=== PATIENT | female | born 1940 | race Asian ===

== ENCOUNTER 2016-07-09 09:48 | Outpatient (CLI) | payer MEDICARE, OTHER | END 2016-07-09 23:59 | DX: R07.2 Precordial pain (principal) ==

== ENCOUNTER 2016-12-11 10:02 | Outpatient (CLI) | payer MEDICARE, OTHER ==
[2016-12-11 13:03] LABS: BASOPHILS # (AUTO) 0.1 10^3/uL (0.0-0.1); BASOPHILS % (AUTO) 1.2 %; EOSINOPHILS # (AUTO) 0.2 10^3/uL (0.0-0.7); EOSINOPHILS % (AUTO) 4.2 %; HCT - HEMATOCRIT 42.5 % (37.0-47.0); HGB - HEMOGLOBIN 14.2 g/dL (12.0-16.0); LYMPHOCYTES % (AUTO) 43.3 %; MEAN CORPUSCULAR HEMOGLOBIN 30.2 pg (27.0-31.0); MEAN CORPUSCULAR HGB CONC 33.4 g/dL (32.0-36.0); MEAN CORPUSCULAR VOLUME 90.4 fL (81.0-99.0); MEAN PLATELET VOLUME 8.6 fL (7.9-10.8); MONOCYTES # (AUTO) 0.4 10^3/uL (0.0-1.0); NEUTROPHILS % (AUTO) 43.3 %; NUCLEATED RED BLOOD CELLS AUTO 0.1 /100WBC; RED CELL DISTRIBUTION WIDTH 13.4 % (12.0-15.0); UNCORRECTED WHITE BLOOD COUNT 4.6 x10^3/uL; WHITE BLOOD COUNT 4.6 x10^3/uL (4.8-10.8)
[2016-12-11 13:09] LABS: ALBUMIN/GLOBULIN RATIO 1.7 (1.0-2.2); BILIRUBIN,TOTAL 0.9 mg/dL (0.2-1.0); CALCIUM 9.3 mg/dL (8.5-10.3); CREATININE 0.5 mg/dL (0.4-1.0); POTASSIUM 3.5 mmol/L (3.5-5.0)
== END 2016-12-11 10:03 ==
LOC: LAB.R 10:02
PROVIDERS: ATTEND Nurse Practitioner Primary Care
DX: E55.9 Vitamin D deficiency, unspecified (principal); Z79.899 Other long term (current) drug therapy; I35.0 Nonrheumatic aortic (valve) stenosis; E78.5 Hyperlipidemia, unspecified
CPT/HCPCS: 80053; 82306; 84443; 85025

== ENCOUNTER 2017-01-20 12:51 | Outpatient (CLI) | payer MEDICARE, OTHER ==
--- NOTE | 2017-01-21 16:17 | DEXA Report ---
DEXA SCAN: 01/20/2017 CLINICAL INDICATION: Postmenopausal. TECHNIQUE: Dual energy x-ray absorptiometry (DXA) was performed on a [employer] system. Regions measured are the AP spine, femoral neck, and, if needed, forearm. COMPARISON: None. In accordance with the International Society for Clinical Densitometry (ISCD) guidelines, data from previous exams may be reanalyzed using current recommendations and techniques. This is done to allow a more accurate basis for comparison with the current study. FINDINGS The data for the lumbar spine is as follows: REGION BMD (g/cm/cm) T-SCORE Z-SCORE L1 0.735 -3.3 -1.3 L2 0.955 -2.0 0.0 L3 0.891 -2.6 -0.6 L4 0.890 -2.6 -0.6 TOTAL 0.869 -2.6 -0.6 NOTE: All evaluable vertebrae are used for classification. The data for the hip is as follows: REGION BMD (g/cm/cm) T-SCORE Z-SCORE Neck 0.664 -2.7 -0.5 TOTAL 0.701 -2.4 -0.4 NOTE: The femoral neck or total proximal femur, whichever is lowest, is used for classification. IMPRESSION: THE WHO CLASSIFICATION BASED ON THE INTERNATIONAL REFERENCE STANDARD IS OSTEOPOROSIS. THE FRACTURE RISK IS HIGH. RECOMMENDATION: Patients with diagnosis of osteoporosis or osteopenia should have regular bone mineral density assessment. For those eligible for Medicare, routine testing is allowed once every 2 years. Testing frequency can be increased for patients who have rapidly progressing disease or for those who are receiving medical therapy to restore bone mass. COMMENT: World Health Organization (WHO) definitions for osteoporosis and osteopenia: NORMAL BMD: T-score at -1.0 or higher, fracture risk is low. OSTEOPENIA BMD: T-score between -1.0 and -2.5, fracture risk is increased. OSTEOPOROSIS BMD: T-score at -2.5 or lower, fracture risk high. National Osteoporosis Foundation recommends: 1. Obtain adequate dietary calcium (at least 1200 mg per day) and vitamin D (400 -800 international units per day). 2. Participate, as appropriate, in regular weightbearing and muscle- strengthening exercise. 3. Avoid tobacco use and reduce alcohol and caffeine intake. 4. For more detailed information see the website at www.NOF.org. MTDD
== END 2017-01-20 12:52 | disposition home or self-care (01) ==
LOC: DI 12:51
PROVIDERS: ATTEND Nurse Practitioner Primary Care
DX: M81.0 Age-related osteoporosis without current pathological fracture (principal)
CPT/HCPCS: 77080

== ENCOUNTER 2017-04-20 11:09 | Outpatient (CLI) | payer MEDICARE, OTHER ==
[2017-04-20 16:48] LABS: ALBUMIN 4.4 g/dL (3.2-5.5); ALBUMIN/GLOBULIN RATIO 1.2 (1.0-2.2); BASOPHILS % (AUTO) 0.9 %; BILIRUBIN,TOTAL 0.3 mg/dL (0.2-1.0); CALCIUM 9.4 mg/dL (8.5-10.3); CREATININE 0.7 mg/dL (0.4-1.0); EOSINOPHILS # (AUTO) 0.2 10^3/uL (0.0-0.7); EOSINOPHILS % (AUTO) 3.4 %; HGB - HEMOGLOBIN 14.9 g/dL (12.0-16.0); LYMPHOCYTES # (AUTO) 2.4 10^3/uL (1.5-3.5); LYMPHOCYTES % (AUTO) 46.9 %; MEAN CORPUSCULAR HEMOGLOBIN 29.6 pg (27.0-31.0); MEAN CORPUSCULAR HGB CONC 32.5 g/dL (32.0-36.0); MEAN CORPUSCULAR VOLUME 91.2 fL (81.0-99.0); MEAN PLATELET VOLUME 8.7 fL (7.9-10.8); MONOCYTES # (AUTO) 0.3 10^3/uL (0.0-1.0); MONOCYTES % (AUTO) 6.5 %; NEUTROPHILS # (AUTO) 2.2 10^3/uL (1.5-6.6); NEUTROPHILS % (AUTO) 42.3 %; PLT - PLATELET COUNT 174 10^3/uL (130-450); RED BLOOD COUNT 5.04 10^6/uL (4.20-5.40); RED CELL DISTRIBUTION WIDTH 13.7 % (12.0-15.0); WHITE BLOOD COUNT 5.2 x10^3/uL (4.8-10.8)
== END 2017-04-20 11:10 | disposition home or self-care (01) ==
LOC: LAB.R 11:09
PROVIDERS: ATTEND Internal Medicine
DX: R10.13 Epigastric pain (principal)
CPT/HCPCS: 80053; 83690; 85025

== ENCOUNTER 2017-05-19 08:00 | Outpatient (CLI) | payer MEDICARE, OTHER | END 2017-05-19 08:01 | LOC: LAB.R 08:00 | PROVIDERS: ATTEND Nurse Practitioner Primary Care | DX: M81.0 Age-related osteoporosis without current pathological fracture (principal); E55.9 Vitamin D deficiency, unspecified | CPT/HCPCS: 82306 ==

== ENCOUNTER 2017-05-22 07:05 | Outpatient (CLI) | payer MEDICARE, OTHER ==
--- NOTE | 2017-05-22 12:21 | CT Report ---
CT OF SINUSES WITHOUT CONTRAST: 05/22/2017 CLINICAL INDICATION: Facial pain. TECHNIQUE: Axial CT images of the paranasal sinuses were obtained without contrast. COMPARISON: 04/22/2010. FINDINGS: Postoperative changes are again seen in the medial felipe of the maxillary sinuses and in the ethmoid air cells. Mild mucosal thickening is present in the sphenoid sinus, maxillary sinuses, and frontal sinuses. No air fluid levels are present. No osseous destruction is seen. The visualized orbital contents are unremarkable. IMPRESSION: MILD CHRONIC SINUS DISEASE, WITH PREVIOUS POSTSURGICAL CHANGES. In accordance with CT protocol optimization, one or more of the following dose reduction techniques were utilized for this exam: automated exposure control, adjustment of mA and/or KV based on patient size, or use of iterative reconstructive technique. TD: 05/22/2017 12:20
== END 2017-05-22 07:06 | disposition home or self-care (01) ==
LOC: DI 07:05
PROVIDERS: ATTEND Internal Medicine
DX: J32.9 Chronic sinusitis, unspecified (principal)
CPT/HCPCS: 70486

== ENCOUNTER 2017-07-01 08:09 | Outpatient (CLI) | payer MEDICARE, OTHER | END 2017-07-01 08:10 | disposition home or self-care (01) | LOC: DI 08:09 | PROVIDERS: ATTEND Physician Assistant Medical | DX: R07.89 Other chest pain (principal) | CPT/HCPCS: 93306 ==

== ENCOUNTER 2019-02-26 07:05 | Outpatient (CLI) | payer MEDICARE, OTHER ==
[2019-02-26 08:36] LABS: ALBUMIN/GLOBULIN RATIO 1.3 (1.0-2.2); ALKALINE PHOSPHATASE 54 IU/L (42-121); ALT ALANINE AMINOTRANSFERASE 16 IU/L (10-60); AST ASPARTATE AMINOTRANSFERASE 20 IU/L (10-42); BILIRUBIN,TOTAL 1.2 mg/dL (0.2-1.0); BUN - BLOOD UREA NITROGEN 17 mg/dL (6-20); CALCIUM 9.1 mg/dL (8.5-10.3); CARBON DIOXIDE - CO2 31 mmol/L (21-32); CHLORIDE 102 mmol/L (101-111); CHOL/HDL RATIO 3.6 (<4.4); CHOLESTEROL 268 mg/dL; CREATININE 0.6 mg/dL (0.4-1.0); GFR - MDRD 97 (>89); GLUCOSE 103 mg/dL (70-100); HDL CHOLESTEROL 75 mg/dL; LDL CHOLESTEROL,CALCULATED 166 mg/dL; LDL/HDL RATIO 2.2 (<4.4); SODIUM 140 mmol/L (135-145); VLDL CHOLESTEROL 27 mg/dL
[2019-02-26 09:07] LABS: BASOPHILS # (AUTO) 0.1 10^3/uL (0.0-0.1); BASOPHILS % (AUTO) 1.1 %; EOSINOPHILS # (AUTO) 0.2 10^3/uL (0.0-0.7); EOSINOPHILS % (AUTO) 4.7 %; HGB - HEMOGLOBIN 14.2 g/dL (12.0-16.0); LYMPHOCYTES # (AUTO) 1.7 10^3/uL (1.5-3.5); LYMPHOCYTES % (AUTO) 37.9 %; MEAN CORPUSCULAR HEMOGLOBIN 29.3 pg (27.0-31.0); MEAN CORPUSCULAR HGB CONC 31.3 g/dL (32.0-36.0); MEAN CORPUSCULAR VOLUME 93.6 fL (81.0-99.0); MEAN PLATELET VOLUME 10.1 fL (7.9-10.8); MONOCYTES # (AUTO) 0.5 10^3/uL (0.0-1.0); MONOCYTES % (AUTO) 10.3 %; NEUTROPHILS # (AUTO) 2.1 10^3/uL (1.5-6.6); NEUTROPHILS % (AUTO) 45.8 %; PLT - PLATELET COUNT 173 10^3/uL (130-450); RED BLOOD COUNT 4.84 10^6/uL (4.20-5.40); RED CELL DISTRIBUTION WIDTH 13.3 % (12.0-15.0); WHITE BLOOD COUNT 4.5 x10^3/uL (4.8-10.8)
== END 2019-02-26 07:06 | disposition home or self-care (01) ==
LOC: LAB 07:05
PROVIDERS: ATTEND Nurse Practitioner
DX: Z00.00 Encounter for general adult medical examination without abnormal findings (principal); M81.0 Age-related osteoporosis without current pathological fracture; I35.0 Nonrheumatic aortic (valve) stenosis; E55.9 Vitamin D deficiency, unspecified; E78.5 Hyperlipidemia, unspecified
CPT/HCPCS: 36415; 80053; 80061; 82306; 83721; 84443; 85025

== ENCOUNTER 2019-03-08 09:17 | Outpatient (CLI) | payer MEDICARE, OTHER ==
--- NOTE | 2019-03-08 11:00 | Ultrasound Report ---
Reason: AORTIC STENOSIS Procedure Date: 03/08/2019 Accession Number: [id number] / [id number] Procedure: US - Carotid Doppler Complete CPT Code: Final Report FULL RESULT: EXAM: BILATERAL CAROTID AND VERTEBRAL ARTERY DUPLEX DOPPLER ULTRASOUND: EXAM DATE: 03/08/2019 10:26 AM CLINICAL HISTORY: Aortic stenosis. COMPARISON: None. TECHNIQUE: Grayscale imaging, color Doppler, and duplex spectral Doppler were used to evaluate the carotid and vertebral arteries bilaterally. Static images were obtained. FINDINGS: There is mild bilateral intimal thickening. No significant plaque is identified in the right or left common or internal carotid arteries. Normal antegrade flow is present in bilateral vertebral arteries. VELOCITIES: Right CCA mid: PSV 90 cm/sec CCA dist: PSV 77 cm/sec ICA prox: PSV 82 cm/sec, EDV 24 cm/sec ICA mid: PSV 55 cm/sec, EDV 18 cm/sec ICA dist: PSV 56 cm/sec, EDV 21 cm/sec ECA: PSV 69 cm/sec Vert: PSV 34 cm/sec ICA/CCA: 0.6 Left CCA mid: PSV 99 cm/sec CCA dist: PSV 97 cm/sec ICA prox: PSV 74 cm/sec, EDV 24 cm/sec ICA mid: PSV 80 cm/sec, EDV 28 cm/sec ICA dist: PSV 101 cm/sec, EDV 34 cm/sec ECA: PSV 61 cm/sec Vert: PSV 45 cm/sec ICA/CCA: 1.1 ICA diameter stenosis: Right: <50% by velocity and <70% by NASCET criteria. Left: <50% by velocity and <70% by NASCET criteria. IMPRESSION: 1. Note is made of bilateral intimal thickening without significant bilateral carotid artery plaquing. 2. In the right carotid artery there are no elevated carotid artery velocities to suggest hemodynamically significant stenosis. 3. In the left carotid artery there are no elevated carotid artery velocities to suggest hemodynamically significant stenosis. 4. Normal antegrade flow is present in bilateral vertebral arteries. General Recommendations: Stenosis =50% ICA - Follow-up ultrasound 6-12 months Stenosis <50% ICA - High Risk Patient with plaque - Follow-up ultrasound 1-2 years Normal Study but High Risk Patient - Follow-up ultrasound 3-5 years Management recommendations and diagnostic criteria are based on current IAC endorsed standards in Carotid Artery Stenosis: Grayscale and Doppler Ultrasound Diagnosis. Validated velocity measurements with angiographic measurements and velocity criteria are extrapolated from diameter data as defined by the Society of Radiologists in Ultrasound Consensus Conference Radiology 2003; 229;340-346. RADIA
== END 2019-03-08 09:18 | disposition home or self-care (01) ==
LOC: DI 09:17
PROVIDERS: ATTEND Nurse Practitioner
DX: R01.1 Cardiac murmur, unspecified (principal); I35.8 Other nonrheumatic aortic valve disorders
CPT/HCPCS: 93306; 93880

== ENCOUNTER 2019-08-21 04:25 | Emergency (ER) | payer MEDICARE, OTHER ==
--- NOTE | 2019-08-21 04:29 | ED Physician Documentation ---
History of Present Illness - Stated complaint Stated Complaint: TATE/HARD TO BREATHE - History obtained from History obtained from: Patient (Patient is a 79-year-old female presents with a chief complaint of shortness of breath and a mild headache she denies fevers or cough or syncope or lower extremity swelling patient reports that she would just like to be "checked out". Looking through her records she does have a history of aortic stenosis. The patient reports that she has had a known history of aortic stenosis for many years. She denies any new chest pain denies any severe shortness of breath. She denies any hemoptysis or any lower extremity swelling or any history of pulmonary embolism or VT he denies chest pain currently.The patient describes her headache is minimal in nature its not the worst headache of her life its not sudden in onset and its not maximum in intensity.) Review of Systems Constitutional: reports: Reviewed and negative Eyes: reports: Reviewed and negative Ears: reports: Reviewed and negative Nose: reports: Reviewed and negative Throat: reports: Reviewed and negative Cardiac: reports: Reviewed and negative Respiratory: reports: Dyspnea GI: reports: Reviewed and negative : reports: Reviewed and negative Skin: reports: Reviewed and negative Musculoskeletal: reports: Reviewed and negative Neurologic: reports: Other (mild headache) Psychiatric: reports: Reviewed and negative Endocrine: reports: Reviewed and negative Immunocompromised: reports: Reviewed and negative PD PAST MEDICAL HISTORY - Past Medical History Cardiovascular: High cholesterol, Coronary artery disease, Angina, Atrial fibrillation, Murmur, Valve disorder Respiratory: None Endocrine/Autoimmune: None GI: Colon polyps, Hemorrhoids : None Psych: None Musculoskeletal: Rheumatoid arthritis, Chronic back pain Derm: None - Past Surgical History General: Colonoscopy Ortho: 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: 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 HEENT: Cataracts - Present Medications Home Medications: Ambulatory Orders Medication Instructions Recorded Confirmed Prednisone 10 mg DAILY 08/21/19 08/21/19 - Allergies Allergies/Adverse Reactions: Allergies Allergy/AdvReac Type Severity Reaction Status Date / Time levofloxacin [From Levaquin] Allergy Mild Rash Verified 08/21/19 04:34 niacin Allergy Mild Rash Verified 08/21/19 04:34 amoxicillin [Amoxicillin] Allergy Rash Verified 08/21/19 04:34 dupilumab [From Dupixent] Allergy Rash Verified 08/21/19 04:34 ezetimibe [From Zetia] Allergy Rash Verified 08/21/19 04:34 furosemide [From Lasix] Allergy Rash Verified 08/21/19 04:34 Rlvxoib-Zng-Gae Reductase Allergy Rash Verified 08/21/19 04:34 Inhibitor Sulfa (Sulfonamide Allergy Rash Verified 08/21/19 04:34 Antibiotics) Tetracyclines Allergy Rash Verified 08/21/19 04:34 diltiazem AdvReac Mild Rash Verified 08/21/19 04:34 - Social History Smoking Status: Never smoker PD ED PE NORMAL - Vitals Vital signs reviewed: Yes - General General: Alert and oriented X 3, No acute distress - HEENT HEENT: Atraumatic, PERRL - Neck Neck: Supple, no meningeal sign - Cardiac Cardiac: RRR, Strong equal pulses, Other (2 out of 6 systolic ejection murmur heard best at the second intercostal space @ the right sternal border) - Respiratory Respiratory: No respiratory distress, Clear bilaterally - Abdomen Abdomen: Normal bowel sounds, Soft, Non tender, Non distended, No organomegaly, Other (No midline abdominal pulsatile mass) - Back Back: No CVA TTP, No spinal TTP - Derm Derm: Normal color, Warm and dry, No rash - Extremities Extremities: No deformity, No tenderness to palpate, Normal ROM s pain, No edema, No calf tenderness / cord - Neuro Neuro: Alert and oriented X 3, director news 2-12 intact, No motor deficit, No sensory deficit, Normal speech - Psych Psych: Normal mood, Normal affect Results - Vitals Vitals: Vital Signs - 24 hr 08/21/19 04:30 Temperature 36.7 C Heart Rate 77 Respiratory 18 Rate Blood Pressure 169/70 H O2 Saturation 99 Oxygen O2 Source Room air - EKG (time done) 04:48 Rate: Other (no stemi) - Labs Labs: Laboratory Tests 08/21/19 08/21/19 08/21/19 05:30 05:30 05:30 WBC 6.8 RBC 4.59 Hgb 13.8 Hct 42.7 MCV 93.0 MCH 30.1 MCHC 32.3 RDW 13.2 Plt Count 165 MPV 10.0 Neut # (Auto) 3.6 Lymph # (Auto) 1.9 Winston # (Auto) 0.9 Eos # (Auto) 0.3 Baso # (Auto) 0.1 Absolute Nucleated RBC 0.00 Nucleated RBC % 0.0 PT 11.5 INR 1.0 APTT 29.6 Sodium 138 Potassium 3.3 L Chloride 106 Carbon Dioxide 25 Anion Gap 7.0 BUN 15 Creatinine 0.5 Estimated GFR (MDRD) 119 Glucose 99 Calcium 8.9 Total Bilirubin 0.8 AST 18 ALT 17 Alkaline Phosphatase 42 Troponin I High Sens B-Natriuretic Peptide Total Protein 6.2 L Albumin 3.6 Globulin 2.6 Albumin/Globulin Ratio 1.4 Lipase 31 08/21/19 08/21/19 05:30 05:30 WBC RBC Hgb Hct MCV MCH MCHC RDW Plt Count MPV Neut # (Auto) Lymph # (Auto) Winston # (Auto) Eos # (Auto) Baso # (Auto) Absolute Nucleated RBC Nucleated RBC % PT INR APTT Sodium Potassium Chloride Carbon Dioxide Anion Gap BUN Creatinine Estimated GFR (MDRD) Glucose Calcium Total Bilirubin AST ALT Alkaline Phosphatase Troponin I High Sens 3.1 B-Natriuretic Peptide 29 Total Protein Albumin Globulin Albumin/Globulin Ratio Lipase PD MEDICAL DECISION MAKING - ED course Complexity details: reviewed old records, reviewed results, re-evaluated patient (06:38 The patient asymptomatic currently her chest x-ray did show some possible pulmonary edema however clinically she does not have acute decompensated congestive heart failure her labs and EKG and troponin and BNP were all unremarkable patient is agreeable to go home she does have follow-up with her primary care provider on Thursday.), considered differential (Patient is well- appearing on exam look in the record she possibly getting have a history of aortic stenosis she is denying any chest pain we will send some screening labs as well), d/w patient Departure - Departure Disposition: Home, Self Care Clinical Impression: SOB (shortness of breath) Condition: Stable Instructions: Heart Murmur Follow-Up: Ave Hollis ARNP, TERMINAL MAKE UP OPERATOR-C [Primary Care Provider] - Tomorrow
[2019-08-21] MEDS ORDERED: ACETAMINOPHEN 325 MG TABLET PO STA (04:44)
--- NOTE | 2019-08-21 05:23 | XRAY Report ---
Reason: sob Procedure Date: 08/21/2019 Accession Number: [id number] / [id number] Procedure: XR - Chest 1 View X-Ray CPT Code: 78029 Final Report FULL RESULT: EXAM: CHEST RADIOGRAPHY EXAM DATE: 08/21/2019 05:06 AM. CLINICAL HISTORY: Short of breath. COMPARISON: XR CHEST PA AND LAT 11/06/2010 12:13 PM. TECHNIQUE: 1 view. FINDINGS: Lungs/Pleura: Diffuse minimal interstitial opacities. No large effusion. No gross pneumothorax. Mediastinum: Mild cardiomegaly. No mediastinal shift. Stable tortuous thoracic aorta. Other: None. IMPRESSION: Minimal fluid overload/CHF. RADIA
[2019-08-21 05:51] LABS: BASOPHILS # (AUTO) 0.1 10^3/uL (0.0-0.1); BASOPHILS % (AUTO) 0.9 %; EOSINOPHILS # (AUTO) 0.3 10^3/uL (0.0-0.7); EOSINOPHILS % (AUTO) 4.3 %; HGB - HEMOGLOBIN 13.8 g/dL (12.0-16.0); LYMPHOCYTES # (AUTO) 1.9 10^3/uL (1.5-3.5); LYMPHOCYTES % (AUTO) 28.2 %; MEAN CORPUSCULAR HEMOGLOBIN 30.1 pg (27.0-31.0); MEAN CORPUSCULAR HGB CONC 32.3 g/dL (32.0-36.0); MONOCYTES # (AUTO) 0.9 10^3/uL (0.0-1.0); MONOCYTES % (AUTO) 12.5 %; NEUTROPHILS # (AUTO) 3.6 10^3/uL (1.5-6.6); NEUTROPHILS % (AUTO) 53.5 %; PLT - PLATELET COUNT 165 10^3/uL (130-450); RED BLOOD COUNT 4.59 10^6/uL (4.20-5.40); RED CELL DISTRIBUTION WIDTH 13.2 % (12.0-15.0); WHITE BLOOD COUNT 6.8 x10^3/uL (4.8-10.8)
[2019-08-21 05:53] LABS: PT - PROTHROMBIN TIME 11.5 secs (9.9-12.6)
[2019-08-21 05:56] LABS: ALBUMIN 3.6 g/dL (3.2-5.5); ALBUMIN/GLOBULIN RATIO 1.4 (1.0-2.2); BILIRUBIN,TOTAL 0.8 mg/dL (0.2-1.0); CALCIUM 8.9 mg/dL (8.5-10.3); CREATININE 0.5 mg/dL (0.4-1.0); TOTAL PROTEIN 6.2 g/dL (6.7-8.2)
[2019-08-21 06:01] LABS: PARTIAL THROMBOPLASTIN TIME 29.6 secs (24.9-33.3)
[2019-08-21 06:45] VITALS: BP 161/63
== END 2019-08-21 06:45 | disposition home or self-care (01) ==
LOC: ED 04:25
DX: R06.02 Shortness of breath (principal); I35.0 Nonrheumatic aortic (valve) stenosis; E78.00 Pure hypercholesterolemia, unspecified; I25.119 Atherosclerotic heart disease of native coronary artery with unspecified angina pectoris; I48.91 Unspecified atrial fibrillation; R01.1 Cardiac murmur, unspecified; M06.9 Rheumatoid arthritis, unspecified; G89.29 Other chronic pain; M54.9 Dorsalgia, unspecified
CPT/HCPCS: 36415; 71045; 80053; 83690; 83880; 84484; 85025; 85610; 85730; 93005; 99283; 99284; A9270

== ENCOUNTER 2020-01-13 08:00 | Outpatient (CLI) | payer MEDICARE, OTHER | END 2020-01-13 23:59 | disposition home or self-care (01) | LOC: LAB.R 08:00 | PROVIDERS: ATTEND Family Medicine | DX: J02.9 Acute pharyngitis, unspecified (principal) | CPT/HCPCS: 87070 ==

== ENCOUNTER 2020-03-22 10:10 | Outpatient (CLI) | payer MEDICARE, OTHER | END 2020-03-22 23:59 | disposition home or self-care (01) | LOC: LAB.R 10:10 | PROVIDERS: ATTEND Nurse Practitioner | DX: J02.9 Acute pharyngitis, unspecified (principal) | CPT/HCPCS: 87070 ==

== ENCOUNTER 2020-04-04 12:29 | Outpatient (CLI) | payer MEDICARE, OTHER | END 2020-04-04 12:30 | disposition home or self-care (01) | LOC: COV 12:29 | PROVIDERS: ATTEND Family Medicine | DX: R53.83 Other fatigue (principal); R07.0 Pain in throat; R09.81 Nasal congestion; J34.89 Other specified disorders of nose and nasal sinuses; R11.2 Nausea with vomiting, unspecified; Z20.828 Contact with and (suspected) exposure to other viral communicable diseases ==

== ENCOUNTER 2020-04-09 07:00 | Outpatient (CLI) | payer MEDICARE, OTHER | END 2020-04-09 23:59 | disposition home or self-care (01) | LOC: LAB.R 07:00 | PROVIDERS: ATTEND Physician Assistant Medical | DX: G44.89 Other headache syndrome (principal) | CPT/HCPCS: 87275; 87276 ==

== ENCOUNTER 2020-04-27 21:15 | Emergency (ER) | payer MEDICARE, OTHER ==
--- NOTE | 2020-04-27 21:47 | ED Physician Documentation ---
PD HPI CHEST PAIN - Stated complaint Stated Complaint: CP - Chief complaint Chief Complaint: Cardiac - History obtained from History obtained from: Patient - History of Present Illness Timing - onset: Enter time (1000), Today Timing - onset during: Light activity Timing - duration: Seconds Timing - details: Abrupt onset, Still present, Other (episodic every 20 minutes) Quality: Sharp, Pain Location: Substernal, Left chest Radiation: No: Jaw, Neck, Back, Abdominal, Left upper extremity, Right upper extremity Improved by: Nothing Worsened by: Other (nothing) Associated symptoms: Cough. No: Shortness of air, Diaphoresis, Nausea, Vomiting, Feeling faint / dizzy, General Weakness, Palpitations Similar symptoms before: Has not had sx before Recently seen: Clinic - Additional information Additional information: 80-year-old female who has a prior history of sinus surgery has had an issue with sinus congestion and cough since March and she has been having some chest pain today that started while she was cleaning her refrigerator. She states that she was not doing much in the way of physical activity with this and the physical activity does not seem to exacerbate this. She describes the pain is in the left chest lateral to the nipple at the costal margin lasting about 3 seconds and happening about every 20 minutes. The pain is mild at a rate of 4 out of 10. She continues to have these episodes throughout the day. She is otherwise not short of breath she does have some mid facial swelling and she is still concerned about postnasal drainage and her cough. She has had a coronavirus PCR done in March. She has been on a Z-Jonel which did help her symptoms in March. Review of Systems Constitutional: denies: Fever Eyes: denies: Decreased vision Ears: reports: Ear pain Nose: reports: Congestion, Sinus pressure / pain Throat: reports: Sore throat (intermittant) Cardiac: reports: Chest pain / pressure. denies: Palpitations Respiratory: reports: Cough. denies: Dyspnea, Wheezing GI: denies: Abdominal Pain, Nausea, Vomiting, Constipation, Diarrhea : denies: Dysuria, Frequency Skin: denies: Rash Musculoskeletal: denies: Neck pain, Back pain, Extremity pain Neurologic: denies: Generalized weakness, Focal weakness, Numbness PD PAST MEDICAL HISTORY - Past Medical History Past Medical History: Yes Cardiovascular: High cholesterol, Coronary artery disease, Angina, Atrial fibrillation, Murmur, Valve disorder Respiratory: None Endocrine/Autoimmune: None GI: Colon polyps, Hemorrhoids : None Psych: None Musculoskeletal: Rheumatoid arthritis, Chronic back pain Derm: None - Past Surgical History Past Surgical History: Yes General: Colonoscopy Ortho: 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 HEENT: Cataracts - Present Medications Home Medications: Ambulatory Orders Medication Instructions Recorded Confirmed Prednisone 10 mg DAILY 08/21/19 04/27/20 Halobetasol Propionate 1 applic TP DAILY PRN 04/27/20 04/27/20 Methotrexate 15 mg PO 04/27/20 Cefdinir 300 mg PO BID #20 capsule 04/28/20 - Allergies Allergies/Adverse Reactions: Allergies Allergy/AdvReac Type Severity Reaction Status Date / Time levofloxacin [From Levaquin] Allergy Mild Rash Verified 08/21/19 04:34 niacin Allergy Mild Rash Verified 08/21/19 04:34 amoxicillin [Amoxicillin] Allergy Rash Verified 08/21/19 04:34 dupilumab [From Dupixent] Allergy Rash Verified 08/21/19 04:34 ezetimibe [From Zetia] Allergy Rash Verified 08/21/19 04:34 furosemide [From Lasix] Allergy Rash Verified 08/21/19 04:34 Lajenjf-Fhk-Kre Reductase Allergy Rash Verified 08/21/19 04:34 Inhibitor Sulfa (Sulfonamide Allergy Rash Verified 08/21/19 04:34 Antibiotics) Tetracyclines Allergy Rash Verified 08/21/19 04:34 diltiazem AdvReac Mild Rash Verified 08/21/19 04:34 - Social History Does the pt smoke?: No Smoking Status: Never smoker Does the pt drink ETOH?: No Does the pt have substance abuse?: No - Immunizations Immunizations are current?: Yes - POLST Patient has POLST: No PD ED PE NORMAL - Vitals Vital signs reviewed: Yes (hypertensive moderate) - General General: Alert and oriented X 3, No acute distress, Well developed/nourished - HEENT HEENT: Atraumatic, PERRL, EOMI, Other (both TM's are occluded by cerumen, there is drainage in the posterior pharynx and tonsillar edema is mild. mild mid facial swelling. ) - Neck Neck: Supple, no meningeal sign, No bony TTP - Cardiac Cardiac: RRR, Other (2 out of 6 holosystolic murmur at the left renal border consistent with aortic stenosis) - Respiratory Respiratory: No respiratory distress, Clear bilaterally, Other - Abdomen Abdomen: Soft, Non tender - Back Back: No CVA TTP, No spinal TTP - Derm Derm: Normal color, Warm and dry, No rash - Extremities Extremities: No deformity, No edema - Neuro Neuro: Alert and oriented X 3, club manager 2-12 intact, No motor deficit, No sensory deficit, Normal speech Eye Opening: Spontaneous Motor: Obeys Commands Verbal: Oriented GCS Score: 15 - Psych Psych: Normal mood, Normal affect Results - Vitals Vitals: Vital Signs - 24 hr 04/27/20 04/27/20 04/27/20 21:20 21:37 21:40 Temperature 36.6 C Heart Rate 93 86 Respiratory 17 14 Rate Blood Pressure 193/86 H 149/80 H Blood Pressure 154/76 H [Left] Blood Pressure 149/80 H [Right] O2 Saturation 100 100 04/27/20 04/27/20 22:24 23:04 Temperature 36.5 C Heart Rate 76 81 Respiratory 14 16 Rate Blood Pressure 154/76 H 175/99 H Blood Pressure [Left] Blood Pressure [Right] O2 Saturation 98 96 Oxygen O2 Source Room air - EKG (time done) 2117 Rate: Rate (enter#) (89) Rhythm: NSR Ischemia: Other (diffuse T wave flattening ) Compare to prior EKG: Changed from prior EKG (08-21-2019 the T wave flattening has occurred) Computer interpretation: Agree with computer - Labs Labs: Laboratory Tests 04/27/20 04/27/20 04/27/20 21:35 21:35 21:35 WBC 6.7 RBC 4.60 Hgb 14.6 Hct 44.0 MCV 95.7 MCH 31.7 H MCHC 33.2 RDW 13.8 Plt Count 202 MPV 9.6 Neut # (Auto) 3.6 Lymph # (Auto) 2.4 Clay # (Auto) 0.6 Eos # (Auto) 0.1 Baso # (Auto) 0.0 Absolute Nucleated RBC 0.00 Nucleated RBC % 0.0 Sodium 142 Potassium 3.3 L Chloride 99 L Carbon Dioxide 28 Anion Gap 15.0 H BUN 19 Creatinine 0.9 Estimated GFR (MDRD) 60 L Glucose 110 H Calcium 9.6 Total Bilirubin 0.9 AST 21 ALT 20 Alkaline Phosphatase 45 Troponin I High Sens 3.4 Total Protein 6.9 Albumin 4.2 Globulin 2.7 Albumin/Globulin Ratio 1.6 Lipase 43 - Rads (name of study) chest Radiology: Prelim report reviewed (Impression: No acute findings.), EMP read indepedently, See rad report Procedures - IVC sono (time) 2209 Bedside IVC sono: IVC measures (cm) (1.49), IVC collapsed c insp (cm) (0.77), Euvolemia PD MEDICAL DECISION MAKING - ED course Complexity details: reviewed old records, reviewed results, re-evaluated patient, considered differential, d/w patient ED course: 80-year-old female with intermittent left-sided chest pain brief episodes lasting 3 seconds coming on every 20 minutes and the low level of 4 out of 10. Today we undertook a primary evaluation of the patient's hard electrocardiogram showed only some T wave flattening and her potassium was low at 3.3. She is administered potassium. We did not find a reason for the patient's pain she does not have chest wall tenderness she does not have findings on her chest x- ray or physical exam. Her chest pain is atypical and without obvious findings historically, physically or with ancillary testing. She does however have a hi story of cough and congestion with symptoms that improved with a z-jonel but did not entirely resolve and symptoms present for more than one month. Her TM's were not visible on exam and her ears were irrigated with mineral oil and warm saline to reveal inflammation bilaterally consistent with OM. She is very interested in treating this and we have given her a dose of decadron and rocephin and we will follow this up with cefdinir. Departure - Departure Disposition: 01 Home, Self Care Clinical Impression: Atypical chest pain Otitis media Qualifiers: Otitis media type: suppurative Chronicity: acute Laterality: bilateral Recurrence: not specified as recurrent Spontaneous tympanic membrane rupture: without spontaneous rupture Qualified Code(s): H66.003 - Acute suppurative otitis media without spontaneous rupture of ear drum, bilateral Condition: Stable Instructions: ED Otitis Media Acute Adult Follow-Up: Ave Hollis ARNP, WINDOWS SUPPORT ENGINEER-C [Primary Care Provider] - Prescriptions: Cefdinir 300 mg PO BID #20 capsule
[2020-04-27 21:48] LABS: BASOPHILS % (AUTO) 0.4 %; EOSINOPHILS # (AUTO) 0.1 10^3/uL (0.0-0.7); EOSINOPHILS % (AUTO) 0.9 %; HGB - HEMOGLOBIN 14.6 g/dL (12.0-16.0); LYMPHOCYTES # (AUTO) 2.4 10^3/uL (1.5-3.5); MEAN CORPUSCULAR HEMOGLOBIN 31.7 pg (27.0-31.0); MEAN CORPUSCULAR HGB CONC 33.2 g/dL (32.0-36.0); MEAN CORPUSCULAR VOLUME 95.7 fL (81.0-99.0); MEAN PLATELET VOLUME 9.6 fL (7.9-10.8); MONOCYTES # (AUTO) 0.6 10^3/uL (0.0-1.0); MONOCYTES % (AUTO) 8.5 %; NEUTROPHILS # (AUTO) 3.6 10^3/uL (1.5-6.6); NEUTROPHILS % (AUTO) 53.9 %; PLT - PLATELET COUNT 202 10^3/uL (130-450); RED CELL DISTRIBUTION WIDTH 13.8 % (12.0-15.0); WHITE BLOOD COUNT 6.7 x10^3/uL (4.8-10.8)
[2020-04-27 22:02] LABS: ALBUMIN 4.2 g/dL (3.2-5.5); ALBUMIN/GLOBULIN RATIO 1.6 (1.0-2.2); BILIRUBIN,TOTAL 0.9 mg/dL (0.2-1.0); CALCIUM 9.6 mg/dL (8.5-10.3); CREATININE 0.9 mg/dL (0.4-1.0); TOTAL PROTEIN 6.9 g/dL (6.7-8.2)
[2020-04-27] MEDS ORDERED: POTASSIUM CHLORIDE 20 MEQ TABLET PO STA (22:46)
[2020-04-28] MEDS ORDERED: cefTRIAXone 1 GM in SODIUM CHLORIDE 0.9% MINIBAG 100 ML IV STA (00:02)
[2020-04-28] MEDS ORDERED: cefTRIAXone 1 GM VIAL ONE (00:18)
[2020-04-28 00:50] VITALS: BP 155/70
[2020-04-28] MEDS ORDERED: DEXAMETHASONE 10 MG/ML VIAL IVP STA (00:56)
[2020-04-28] MEDS ORDERED: CHERRY SYRUP 10 ML UDC PO ONE (01:00)
[2020-04-28] MEDS ORDERED: DEXAMETHASONE 10 MG/ML VIAL PO STA (01:00)
--- NOTE | 2020-04-28 11:04 | XRAY Report ---
PROCEDURE: Chest 1 View X-Ray INDICATIONS: Chest pain TECHNIQUE: One view of the chest was acquired. COMPARISON: Chest x-ray 08/21/2019 FINDINGS: Surgical changes and devices: None. Lungs and pleura: No pleural effusions or pneumothorax. Lungs are clear. Mediastinum: Mediastinal contours appear normal. Heart size is enlarged. Bones and chest wall: No suspicious bony lesions. Overlying soft tissues appear unremarkable. IMPRESSION: No acute pulmonary process. The above findings are concordant with preliminary report. Reviewed by: Ysabel Saleem MD on 04/28/2020 11:03 AM PST Approved by: Ysabel Saleem MD on 04/28/2020 11:03 AM [facility] [[email or web address]] Station ID: [id number]
== END 2020-04-28 01:06 | disposition home or self-care (01) ==
LOC: ED 21:15
DX: R07.89 Other chest pain (principal); H66.003 Acute suppurative otitis media without spontaneous rupture of ear drum, bilateral; H61.23 Impacted cerumen, bilateral; E87.6 Hypokalemia; I35.0 Nonrheumatic aortic (valve) stenosis
CPT/HCPCS: 36415; 71045; 80053; 83690; 84484; 85025; 93005; 96365; 99284; A9270

== ENCOUNTER 2020-04-29 08:55 | Emergency (ER) | payer MEDICARE, OTHER ==
[2020-04-29 09:03] VITALS: BP 155/63
--- NOTE | 2020-04-29 09:53 | ED Physician Documentation ---
History of Present Illness - Stated complaint Stated Complaint: FACE SWELLING - Chief complaint Chief Complaint: Allergic Rx - History obtained from History obtained from: Patient - Additonal information Additional information: 80-year-old woman with recent diagnosis yesterday of ear infection on cefdinir 300 mg twice daily presents with eye redness today that she noted around 8 AM after taking cefdinir for the first time at 5:45 AM. She said that her face felt warm and she noticed flushing around the eyes. She has had some mild upper respiratory symptoms for the past month which brought her in yesterday and was diagnosed with an ear infection. Patient states that she does not have ear pain at present. Denies fevers, allergic symptoms (dizziness, nausea or vomiting, chest pain, shortness of breath, swelling, itchiness). Her facial warmth and redness resolved upon arrival in the ED. Review of Systems Ten Systems: 10 systems reviewed and negative Cardiac: denies: Chest pain / pressure, Palpitations Respiratory: denies: Dyspnea GI: denies: Nausea, Vomiting Skin: reports: Other (facial erythema). 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 HEENT: Cataracts - Present Medications Home Medications: Ambulatory Orders Medication Instructions Recorded Confirmed Prednisone 10 mg DAILY 08/21/19 04/27/20 Halobetasol Propionate 1 applic TP DAILY PRN 04/27/20 04/27/20 Methotrexate 15 mg PO 04/27/20 Cefdinir 300 mg PO BID #20 capsule 04/28/20 - Allergies Allergies/Adverse Reactions: Allergies Allergy/AdvReac Type Severity Reaction Status Date / Time levofloxacin [From Levaquin] Allergy Mild Rash Verified 04/29/20 08:59 niacin Allergy Mild Rash Verified 04/29/20 08:59 amoxicillin [Amoxicillin] Allergy Rash Verified 04/29/20 08:59 dupilumab [From Dupixent] Allergy Rash Verified 04/29/20 08:59 ezetimibe [From Zetia] Allergy Rash Verified 01/17/21 08:59 furosemide [From Lasix] Allergy Rash Verified 04/29/20 08:59 [id number]-Ggc-Kfk Reductase Allergy Rash Verified 04/29/20 08:59 Inhibitor Sulfa (Sulfonamide Allergy Rash Verified 04/29/20 08:59 Antibiotics) Tetracyclines Allergy Rash Verified 04/29/20 08:59 diltiazem AdvReac Mild Rash Verified 04/29/20 08:59 - Social History Does the pt smoke?: No Smoking Status: Never smoker Does the pt drink ETOH?: No Does the pt have substance abuse?: No - Immunizations Immunizations are current?: Yes - POLST Patient has POLST: No PD ED PE NORMAL - Vitals Vital signs reviewed: Yes - General General: Alert and oriented X 3 - HEENT HEENT: Atraumatic - Neck Neck: Supple, no meningeal sign - Cardiac Cardiac: RRR - Respiratory Respiratory: No respiratory distress, Clear bilaterally - Abdomen Abdomen: Non tender, Non distended - Derm Derm: Normal color, Warm and dry, No rash - Extremities Extremities: No deformity - Neuro Neuro: Alert and oriented X 3 - Psych Psych: Normal mood, Normal affect Results - Vitals Vitals: Vital Signs - 24 hr 04/29/20 08:59 Temperature 36.5 C Heart Rate 84 Respiratory 18 Rate Blood Pressure 155/63 H O2 Saturation 100 Oxygen O2 Source Room air PD MEDICAL DECISION MAKING - ED course ED course: 80-year-old woman came in with concerns for possible allergic reaction after taking her first dose of cefdinir. She does not have a history of allergy to this antibiotic and her facial redness appears to have resolved without having taken any medications. Counseled patient to complete her antibiotic course and follow-up with her primary. Return precautions discussed. Departure - Departure Disposition: 01 Home, Self Care Clinical Impression: Generalized body aches, Erythema of face Condition: Good Instructions: ED Screening Exam Medical Nonurgent Comments: You were seen in the emergency department for medical screening exam for facial flushing. It appears to have resolved on its own. You can continue your cefdinir. Return to the ed if you have headache, nausea/vomiting, dizziness, chest pain, rash, facial swelling, shortness of breath or diarrhea, or if you have other concerning symptoms. follow up with your primary doctor. Discharge Date/Time: 04/29/20 09:55
== END 2020-04-29 09:55 | disposition home or self-care (01) ==
LOC: ED 08:55
DX: L53.9 Erythematous condition, unspecified (principal); R23.2 Flushing; R52 Pain, unspecified
CPT/HCPCS: 99281; 99284

== ENCOUNTER 2020-05-02 10:00 | Outpatient (CLI) | payer MEDICARE, OTHER ==
[2020-05-02 10:43] LABS: BASOPHILS % (AUTO) 0.6 %; EOSINOPHILS % (AUTO) 0.6 %; HGB - HEMOGLOBIN 14.3 g/dL (12.0-16.0); LYMPHOCYTES # (AUTO) 1.4 10^3/uL (1.5-3.5); LYMPHOCYTES % (AUTO) 20.2 %; MEAN CORPUSCULAR HEMOGLOBIN 31.5 pg (27.0-31.0); MEAN CORPUSCULAR HGB CONC 32.5 g/dL (32.0-36.0); MEAN CORPUSCULAR VOLUME 96.9 fL (81.0-99.0); MEAN PLATELET VOLUME 9.7 fL (7.9-10.8); MONOCYTES # (AUTO) 0.4 10^3/uL (0.0-1.0); NEUTROPHILS # (AUTO) 5.1 10^3/uL (1.5-6.6); NEUTROPHILS % (AUTO) 72.9 %; PLT - PLATELET COUNT 200 10^3/uL (130-450); RED BLOOD COUNT 4.54 10^6/uL (4.20-5.40); RED CELL DISTRIBUTION WIDTH 13.9 % (12.0-15.0)
[2020-05-02 11:07] LABS: ALBUMIN 4.1 g/dL (3.2-5.5); ALBUMIN/GLOBULIN RATIO 1.4 (1.0-2.2); BILIRUBIN,TOTAL 1.2 mg/dL (0.2-1.0); CALCIUM 9.6 mg/dL (8.5-10.3); CREATININE 0.6 mg/dL (0.4-1.0)
[2020-05-02 11:43] LABS: FOLLICLE STIMULATING HORMONE 75.04 mIU/mL
[2020-05-02 11:44] LABS: LUTEINIZING HORMONE 24.03 mIU/mL
[2020-05-03 06:03] LABS: ESTRADIOL <15 pg/mL
[2020-05-03 23:18] LABS: FREE T4 (FREE THYROXINE) 0.99 ng/dL (0.58-1.64)
[2020-05-04 11:21] LABS: ANA SCREEN NEGATIVE (NEGATIVE)
[2020-05-04 16:02] LABS: DHEA SULFATE 21 mcg/dL (7-177)
== END 2020-05-02 10:01 | disposition home or self-care (01) ==
LOC: LAB 10:00
PROVIDERS: ATTEND Physician Assistant Medical
DX: L65.9 Nonscarring hair loss, unspecified (principal); Z79.899 Other long term (current) drug therapy; L20.89 Other atopic dermatitis; L29.8 Other pruritus
CPT/HCPCS: 36415; 80053; 81599; 82627; 82670; 82672; 83001; 83002; 83615; 84403; 84439; 84443; 85025; 86038; 86592

== ENCOUNTER 2020-05-04 07:04 | Outpatient (CLI) | payer MEDICARE, OTHER ==
--- NOTE | 2020-05-04 10:03 | CT Report ---
PROCEDURE: Sinuses INDICATIONS: MAXILLARY SINUSITIS TECHNIQUE: Noncontrast 3.0 mm axial images acquired from the frontal sinuses to the mid-sella, with coronal and sagittal reformats. For radiation dose reduction, the following was used: automated exposure control , adjustment of mA and/or kV according to patient size. COMPARISON: 05/22/2017. FINDINGS: Image quality: Excellent. Maxillary Sinuses: Bilateral medial nasal antral windows and uncinate process resections. No bony re modeling or destruction. Sinuses are clear. Ethmoid Air Cells: Bilateral subtotal ethmoidectomies. No bony remodeling or destruction. Previous p atchy bilateral anterior ethmoid disease has resolved. Sinuses are clear. Sphenoid Sinuses: No bony remodeling or destruction. Sinuses are clear. Frontal Sinuses: No bony remodeling or destruction. Sinuses are clear. Ostiomeatal Complexes: Ostiomeatal complexes have been resected. No Edwin cells. Miscellaneous: Visualized intra-orbital contents are normal. No rogerio bullosa. Mild leftward nasal septal deviation. Nasal airways are widely patent IMPRESSION: 1. Extensive previous bilateral sinus surgery 2. No evidence of acute or chronic sinusitis currently. Reviewed by: Mynor Rivers MD on 05/04/2020 10:02 AM PST Approved by: Mynor Rivers MD on 05/04/2020 10:02 AM PST Station ID: [id number]
== END 2020-05-04 07:05 | disposition home or self-care (01) ==
LOC: DI 07:04
PROVIDERS: ATTEND Family Medicine
DX: J32.0 Chronic maxillary sinusitis (principal)

== ENCOUNTER 2020-05-07 08:33 | Outpatient (CLI) | payer MEDICARE, OTHER ==
[2020-05-07 08:52] LABS: BASOPHILS % (AUTO) 0.6 %; EOSINOPHILS # (AUTO) 0.1 10^3/uL (0.0-0.7); EOSINOPHILS % (AUTO) 1.4 %; HGB - HEMOGLOBIN 14.1 g/dL (12.0-16.0); LYMPHOCYTES % (AUTO) 32.4 %; MEAN CORPUSCULAR HEMOGLOBIN 31.5 pg (27.0-31.0); MEAN CORPUSCULAR HGB CONC 32.4 g/dL (32.0-36.0); MEAN CORPUSCULAR VOLUME 97.1 fL (81.0-99.0); MEAN PLATELET VOLUME 9.7 fL (7.9-10.8); MONOCYTES # (AUTO) 0.5 10^3/uL (0.0-1.0); MONOCYTES % (AUTO) 8.7 %; NEUTROPHILS # (AUTO) 3.5 10^3/uL (1.5-6.6); NEUTROPHILS % (AUTO) 56.6 %; PLT - PLATELET COUNT 180 10^3/uL (130-450); RED BLOOD COUNT 4.48 10^6/uL (4.20-5.40); RED CELL DISTRIBUTION WIDTH 13.9 % (12.0-15.0); WHITE BLOOD COUNT 6.2 x10^3/uL (4.8-10.8)
[2020-05-07 09:08] LABS: ALBUMIN 3.8 g/dL (3.2-5.5); BILIRUBIN,DIRECT 0.1 mg/dL (0.1-0.5); BILIRUBIN,TOTAL 0.5 mg/dL (0.2-1.0); CREATININE 0.6 mg/dL (0.4-1.0); TOTAL PROTEIN 6.6 g/dL (6.7-8.2)
== END 2020-05-07 08:34 | disposition home or self-care (01) ==
LOC: LAB 08:33
PROVIDERS: ATTEND Physician Assistant Medical
DX: L20.89 Other atopic dermatitis (principal)
CPT/HCPCS: 36415; 80076; 82565; 84520; 85025

== ENCOUNTER 2020-06-01 07:50 | Outpatient (CLI) | payer MEDICARE, OTHER | END 2020-06-01 07:51 | disposition home or self-care (01) | LOC: DI 07:50 | PROVIDERS: ATTEND Nurse Practitioner | DX: I10 Essential (primary) hypertension (principal); R01.1 Cardiac murmur, unspecified; I70.0 Atherosclerosis of aorta; I08.0 Rheumatic disorders of both mitral and aortic valves | CPT/HCPCS: 93306 ==

== ENCOUNTER 2020-06-06 07:58 | Outpatient (CLI) | payer MEDICARE, OTHER ==
[2020-06-06 08:14] LABS: BASOPHILS # (AUTO) 0.1 10^3/uL (0.0-0.1); BASOPHILS % (AUTO) 1.2 %; EOSINOPHILS # (AUTO) 0.1 10^3/uL (0.0-0.7); EOSINOPHILS % (AUTO) 2.2 %; HGB - HEMOGLOBIN 14.5 g/dL (12.0-16.0); LYMPHOCYTES # (AUTO) 1.9 10^3/uL (1.5-3.5); LYMPHOCYTES % (AUTO) 37.6 %; MEAN CORPUSCULAR HEMOGLOBIN 32.2 pg (27.0-31.0); MEAN CORPUSCULAR HGB CONC 32.5 g/dL (32.0-36.0); MEAN CORPUSCULAR VOLUME 99.1 fL (81.0-99.0); MEAN PLATELET VOLUME 9.6 fL (7.9-10.8); MONOCYTES # (AUTO) 0.5 10^3/uL (0.0-1.0); MONOCYTES % (AUTO) 9.2 %; NEUTROPHILS # (AUTO) 2.5 10^3/uL (1.5-6.6); NEUTROPHILS % (AUTO) 49.6 %; PLT - PLATELET COUNT 169 10^3/uL (130-450); RED CELL DISTRIBUTION WIDTH 13.2 % (12.0-15.0)
[2020-06-06 08:31] LABS: ALBUMIN 4.1 g/dL (3.2-5.5); BILIRUBIN,DIRECT 0.1 mg/dL (0.1-0.5); CREATININE 0.6 mg/dL (0.4-1.0); TOTAL PROTEIN 6.8 g/dL (6.7-8.2)
== END 2020-06-06 07:59 | disposition home or self-care (01) ==
LOC: LAB 07:58
PROVIDERS: ATTEND Physician Assistant Medical
DX: L20.89 Other atopic dermatitis (principal); Z79.899 Other long term (current) drug therapy
CPT/HCPCS: 36415; 80076; 82565; 84520; 85025

== ENCOUNTER 2020-07-04 07:55 | Outpatient (CLI) | payer MEDICARE, OTHER ==
[2020-07-04 08:09] LABS: BASOPHILS % (AUTO) 0.9 %; EOSINOPHILS # (AUTO) 0.2 10^3/uL (0.0-0.7); HCT - HEMATOCRIT 41.8 % (37.0-47.0); HGB - HEMOGLOBIN 13.6 g/dL (12.0-16.0); LYMPHOCYTES # (AUTO) 1.9 10^3/uL (1.5-3.5); LYMPHOCYTES % (AUTO) 41.6 %; MEAN CORPUSCULAR HEMOGLOBIN 32.2 pg (27.0-31.0); MEAN CORPUSCULAR HGB CONC 32.5 g/dL (32.0-36.0); MEAN CORPUSCULAR VOLUME 99.1 fL (81.0-99.0); MEAN PLATELET VOLUME 9.9 fL (7.9-10.8); MONOCYTES # (AUTO) 0.5 10^3/uL (0.0-1.0); MONOCYTES % (AUTO) 10.6 %; NEUTROPHILS # (AUTO) 1.9 10^3/uL (1.5-6.6); NEUTROPHILS % (AUTO) 42.5 %; PLT - PLATELET COUNT 178 10^3/uL (130-450); RED BLOOD COUNT 4.22 10^6/uL (4.20-5.40); RED CELL DISTRIBUTION WIDTH 13.2 % (12.0-15.0); WHITE BLOOD COUNT 4.5 x10^3/uL (4.8-10.8)
[2020-07-04 08:26] LABS: BILIRUBIN,DIRECT 0.1 mg/dL (0.1-0.5); BILIRUBIN,TOTAL 1.1 mg/dL (0.2-1.0); CREATININE 0.6 mg/dL (0.4-1.0); TOTAL PROTEIN 6.6 g/dL (6.7-8.2)
== END 2020-07-04 07:56 | disposition home or self-care (01) ==
LOC: LAB 07:55
PROVIDERS: ATTEND Physician Assistant Medical
DX: L20.89 Other atopic dermatitis (principal); Z79.899 Other long term (current) drug therapy
CPT/HCPCS: 36415; 80076; 82565; 84520; 85025

== ENCOUNTER 2020-07-12 15:42 | Outpatient (CLI) | payer MEDICARE, OTHER ==
--- NOTE | 2020-07-13 09:17 | Ultrasound Report ---
PROCEDURE: Carotid Doppler Complete INDICATIONS: HEADACHE, FATIGUE, SOB, PALPITATIONS TECHNIQUE: Color and pulse Doppler interrogation was performed of both carotid systems, with image documentation and velocity measurements. COMPARISON: None. FINDINGS: Right side: Brachial blood pressure: 125/49 mm Hg. Common carotid artery peak systolic velocity: 119.6 cm/sec. Internal carotid artery peak systolic velocity: 62.6 cm/sec. Internal carotid artery end diastolic velocity: 17.7 cm/sec. External carotid artery peak systolic velocity: 53.8 cm/sec. ICA/CCA peak systolic ratio: 0.5 . Church scale imaging description: Mild intimal thickening without significant plaque. Percent internal carotid artery stenosis: None . Vertebral artery: Flow direction is antegrade. Left side: Brachial blood pressure: 124/49 mm Hg. Common carotid artery peak systolic velocity: 81.3 cm/sec. Internal carotid artery peak systolic velocity: 72.1 cm/sec. Internal carotid artery end diastolic velocity: 21.3 cm/sec. External carotid artery peak systolic velocity: 81.4 cm/sec. ICA/CCA peak systolic ratio: 0.9 . Church scale imaging description: Mild intimal thickening without significant plaque. Percent internal carotid artery stenosis: None . Vertebral artery: Flow direction is antegrade. IMPRESSION: 1. Minimal plaque bilaterally. 2. No stenosis bilaterally. The estimate of stenosis included in the report of the imaging study was calculated using the NASCET method Reviewed by: Kael Hutchison on 07/13/2020 9:16 AM PDT Approved by: Kael Hutchison on 07/13/2020 9:16 AM PDT Station ID: [id number]
== END 2020-07-12 15:43 | disposition home or self-care (01) ==
LOC: DI 15:42
PROVIDERS: ATTEND Nurse Practitioner
DX: G44.89 Other headache syndrome (principal); R53.83 Other fatigue; R06.02 Shortness of breath; R00.2 Palpitations
CPT/HCPCS: 93880

== ENCOUNTER 2020-08-02 07:54 | Outpatient (CLI) | payer MEDICARE, OTHER ==
[2020-08-02 08:18] LABS: CREATININE 0.6 mg/dL (0.4-1.0)
[2020-08-02 08:25] LABS: BASOPHILS # (AUTO) 0.1 10^3/uL (0.0-0.1); BASOPHILS % (AUTO) 1.2 %; EOSINOPHILS # (AUTO) 0.2 10^3/uL (0.0-0.7); EOSINOPHILS % (AUTO) 5.3 %; HCT - HEMATOCRIT 43.1 % (37.0-47.0); HGB - HEMOGLOBIN 13.9 g/dL (12.0-16.0); LYMPHOCYTES # (AUTO) 1.6 10^3/uL (1.5-3.5); LYMPHOCYTES % (AUTO) 36.3 %; MEAN CORPUSCULAR HEMOGLOBIN 31.6 pg (27.0-31.0); MEAN CORPUSCULAR HGB CONC 32.3 g/dL (32.0-36.0); MEAN PLATELET VOLUME 9.9 fL (7.9-10.8); MONOCYTES # (AUTO) 0.4 10^3/uL (0.0-1.0); MONOCYTES % (AUTO) 9.2 %; NEUTROPHILS # (AUTO) 2.1 10^3/uL (1.5-6.6); NEUTROPHILS % (AUTO) 47.8 %; PLT - PLATELET COUNT 183 10^3/uL (130-450); RED CELL DISTRIBUTION WIDTH 13.1 % (12.0-15.0); WHITE BLOOD COUNT 4.3 x10^3/uL (4.8-10.8)
== END 2020-08-02 07:55 | disposition home or self-care (01) ==
LOC: LAB 07:54
PROVIDERS: ATTEND Physician Assistant Medical
DX: L20.89 Other atopic dermatitis (principal); Z79.899 Other long term (current) drug therapy
CPT/HCPCS: 36415; 82565; 84520; 85025

== ENCOUNTER 2020-08-31 08:00 | Outpatient (CLI) | payer MEDICARE, OTHER ==
[2020-08-31 08:18] LABS: BASOPHILS # (AUTO) 0.1 10^3/uL (0.0-0.1); BASOPHILS % (AUTO) 1.2 %; EOSINOPHILS # (AUTO) 0.2 10^3/uL (0.0-0.7); EOSINOPHILS % (AUTO) 5.1 %; HCT - HEMATOCRIT 42.4 % (37.0-47.0); HGB - HEMOGLOBIN 13.9 g/dL (12.0-16.0); LYMPHOCYTES # (AUTO) 1.3 10^3/uL (1.5-3.5); LYMPHOCYTES % (AUTO) 31.4 %; MEAN CORPUSCULAR HEMOGLOBIN 31.2 pg (27.0-31.0); MEAN CORPUSCULAR HGB CONC 32.8 g/dL (32.0-36.0); MEAN CORPUSCULAR VOLUME 95.3 fL (81.0-99.0); MEAN PLATELET VOLUME 9.6 fL (7.9-10.8); MONOCYTES # (AUTO) 0.4 10^3/uL (0.0-1.0); NEUTROPHILS # (AUTO) 2.1 10^3/uL (1.5-6.6); NEUTROPHILS % (AUTO) 52.1 %; PLT - PLATELET COUNT 191 10^3/uL (130-450); RED BLOOD COUNT 4.45 10^6/uL (4.20-5.40); RED CELL DISTRIBUTION WIDTH 13.2 % (12.0-15.0); WHITE BLOOD COUNT 4.1 x10^3/uL (4.8-10.8)
[2020-08-31 08:34] LABS: ALBUMIN 3.9 g/dL (3.2-5.5); BILIRUBIN,DIRECT 0.1 mg/dL (0.1-0.5); BILIRUBIN,TOTAL 1.1 mg/dL (0.2-1.0); CREATININE 0.7 mg/dL (0.4-1.0); TOTAL PROTEIN 6.9 g/dL (6.7-8.2)
== END 2020-08-31 08:01 | disposition home or self-care (01) ==
LOC: LAB 08:00
PROVIDERS: ATTEND Physician Assistant Medical
DX: L20.89 Other atopic dermatitis (principal)
CPT/HCPCS: 36415; 80076; 82565; 84520; 85025

== ENCOUNTER 2020-09-28 08:07 | Outpatient (CLI) | payer MEDICARE, OTHER ==
[2020-09-28 08:29] LABS: EOSINOPHILS # (AUTO) 0.2 10^3/uL (0.0-0.7); EOSINOPHILS % (AUTO) 5.4 %; HCT - HEMATOCRIT 42.1 % (37.0-47.0); HGB - HEMOGLOBIN 13.6 g/dL (12.0-16.0); LYMPHOCYTES # (AUTO) 1.4 10^3/uL (1.5-3.5); LYMPHOCYTES % (AUTO) 35.8 %; MEAN CORPUSCULAR HEMOGLOBIN 31.3 pg (27.0-31.0); MEAN CORPUSCULAR HGB CONC 32.3 g/dL (32.0-36.0); MEAN PLATELET VOLUME 9.8 fL (7.9-10.8); MONOCYTES # (AUTO) 0.4 10^3/uL (0.0-1.0); MONOCYTES % (AUTO) 11.1 %; NEUTROPHILS # (AUTO) 1.8 10^3/uL (1.5-6.6); NEUTROPHILS % (AUTO) 46.4 %; PLT - PLATELET COUNT 172 10^3/uL (130-450); RED BLOOD COUNT 4.34 10^6/uL (4.20-5.40); RED CELL DISTRIBUTION WIDTH 13.6 % (12.0-15.0); WHITE BLOOD COUNT 3.9 x10^3/uL (4.8-10.8)
[2020-09-28 08:49] LABS: BILIRUBIN,DIRECT 0.1 mg/dL (0.1-0.5); BILIRUBIN,TOTAL 1.3 mg/dL (0.2-1.0); CREATININE 0.5 mg/dL (0.4-1.0); TOTAL PROTEIN 6.8 g/dL (6.7-8.2)
== END 2020-09-28 08:08 | disposition home or self-care (01) ==
LOC: LAB 08:07
PROVIDERS: ATTEND Physician Assistant Medical
DX: L20.89 Other atopic dermatitis (principal)
CPT/HCPCS: 36415; 80076; 82565; 84520; 85025

== ENCOUNTER 2020-10-30 08:01 | Outpatient (CLI) | payer MEDICARE, OTHER ==
[2020-10-30 08:30] LABS: BASOPHILS # (AUTO) 0.1 10^3/uL (0.0-0.1); BASOPHILS % (AUTO) 1.1 %; EOSINOPHILS # (AUTO) 0.1 10^3/uL (0.0-0.7); EOSINOPHILS % (AUTO) 2.8 %; HCT - HEMATOCRIT 41.9 % (37.0-47.0); HGB - HEMOGLOBIN 13.7 g/dL (12.0-16.0); LYMPHOCYTES # (AUTO) 1.6 10^3/uL (1.5-3.5); LYMPHOCYTES % (AUTO) 34.1 %; MEAN CORPUSCULAR HEMOGLOBIN 31.3 pg (27.0-31.0); MEAN CORPUSCULAR HGB CONC 32.7 g/dL (32.0-36.0); MEAN CORPUSCULAR VOLUME 95.7 fL (81.0-99.0); MEAN PLATELET VOLUME 9.7 fL (7.9-10.8); MONOCYTES # (AUTO) 0.5 10^3/uL (0.0-1.0); MONOCYTES % (AUTO) 11.1 %; NEUTROPHILS # (AUTO) 2.3 10^3/uL (1.5-6.6); NEUTROPHILS % (AUTO) 50.5 %; PLT - PLATELET COUNT 163 10^3/uL (130-450); RED BLOOD COUNT 4.38 10^6/uL (4.20-5.40); RED CELL DISTRIBUTION WIDTH 13.6 % (12.0-15.0); WHITE BLOOD COUNT 4.6 x10^3/uL (4.8-10.8)
[2020-10-30 08:40] LABS: PT - PROTHROMBIN TIME 11.4 secs (9.9-12.6)
[2020-10-30 08:41] LABS: BILIRUBIN,DIRECT 0.1 mg/dL (0.1-0.5); BILIRUBIN,TOTAL 0.9 mg/dL (0.2-1.0); CREATININE 0.6 mg/dL (0.4-1.0); TOTAL PROTEIN 6.6 g/dL (6.7-8.2)
[2020-10-30 08:45] LABS: ALBUMIN/GLOBULIN RATIO 1.5 (1.0-2.2); ALKALINE PHOSPHATASE 58 IU/L (42-121); ALT ALANINE AMINOTRANSFERASE 19 IU/L (10-60); AST ASPARTATE AMINOTRANSFERASE 22 IU/L (10-42); BILIRUBIN,TOTAL 0.9 mg/dL (0.2-1.0); BUN - BLOOD UREA NITROGEN 13 mg/dL (6-20); CALCIUM 9.3 mg/dL (8.5-10.3); CARBON DIOXIDE - CO2 28 mmol/L (21-32); CHLORIDE 103 mmol/L (101-111); CHOL/HDL RATIO 3.2 (<4.4); CHOLESTEROL 261 mg/dL; CREATININE 0.6 mg/dL (0.4-1.0); GFR - MDRD 96 (>89); GLUCOSE 84 mg/dL (70-100); HDL CHOLESTEROL 81 mg/dL; LDL CHOLESTEROL,CALCULATED 151 mg/dL; LDL/HDL RATIO 1.9 (<4.4); POTASSIUM 3.6 mmol/L (3.5-5.0); SODIUM 137 mmol/L (135-145); TOTAL PROTEIN 6.6 g/dL (6.7-8.2); TRIGLYCERIDES 145 mg/dL; VLDL CHOLESTEROL 29 mg/dL
[2020-10-30 13:16] LABS: ESTIMATED AVERAGE GLUCOSE 117 mg/dL (70-100); HEMOGLOBIN A1c% 5.7 % (4.27-6.07)
== END 2020-10-30 08:02 | disposition home or self-care (01) ==
LOC: LAB 08:01
PROVIDERS: ATTEND Physician Assistant Medical
DX: L20.89 Other atopic dermatitis (principal); I10 Essential (primary) hypertension; Z79.899 Other long term (current) drug therapy; E78.5 Hyperlipidemia, unspecified; R73.01 Impaired fasting glucose
CPT/HCPCS: 36415; 80053; 80061; 80076; 82248; 82565; 83036; 83721; 84520; 85025; 85610; 85730

== ENCOUNTER 2020-11-26 07:51 | Outpatient (CLI) | payer MEDICARE, OTHER ==
[2020-11-26 08:18] LABS: BASOPHILS # (AUTO) 0.1 10^3/uL (0.0-0.1); EOSINOPHILS # (AUTO) 0.2 10^3/uL (0.0-0.7); EOSINOPHILS % (AUTO) 3.2 %; HCT - HEMATOCRIT 43.4 % (37.0-47.0); HGB - HEMOGLOBIN 13.8 g/dL (12.0-16.0); LYMPHOCYTES # (AUTO) 1.7 10^3/uL (1.5-3.5); LYMPHOCYTES % (AUTO) 34.3 %; MEAN CORPUSCULAR HEMOGLOBIN 30.8 pg (27.0-31.0); MEAN CORPUSCULAR HGB CONC 31.8 g/dL (32.0-36.0); MEAN CORPUSCULAR VOLUME 96.9 fL (81.0-99.0); MEAN PLATELET VOLUME 9.8 fL (7.9-10.8); MONOCYTES # (AUTO) 0.5 10^3/uL (0.0-1.0); MONOCYTES % (AUTO) 10.2 %; NEUTROPHILS # (AUTO) 2.5 10^3/uL (1.5-6.6); NEUTROPHILS % (AUTO) 50.9 %; PLT - PLATELET COUNT 179 10^3/uL (130-450); RED BLOOD COUNT 4.48 10^6/uL (4.20-5.40); RED CELL DISTRIBUTION WIDTH 13.8 % (12.0-15.0)
[2020-11-26 08:33] LABS: ALKALINE PHOSPHATASE 62 IU/L (42-121); ALT ALANINE AMINOTRANSFERASE 21 IU/L (10-60); AST ASPARTATE AMINOTRANSFERASE 22 IU/L (10-42); BILIRUBIN,TOTAL 0.9 mg/dL (0.2-1.0); BUN - BLOOD UREA NITROGEN 13 mg/dL (6-20); CREATININE 0.7 mg/dL (0.4-1.0); GFR - MDRD 81 (>89); TOTAL PROTEIN 6.4 g/dL (6.7-8.2)
[2020-11-26 09:12] LABS: BILIRUBIN,DIRECT < 0.1 mg/dL (0.1-0.5)
== END 2020-11-26 07:52 | disposition home or self-care (01) ==
LOC: LAB 07:51
PROVIDERS: ATTEND Physician Assistant Medical
DX: L20.89 Other atopic dermatitis (principal); Z79.899 Other long term (current) drug therapy
CPT/HCPCS: 36415; 80076; 82565; 84520; 85025

== ENCOUNTER 2020-12-21 07:50 | Outpatient (CLI) | payer MEDICARE, OTHER ==
[2020-12-21 08:19] LABS: BASOPHILS # (AUTO) 0.1 10^3/uL (0.0-0.1); EOSINOPHILS # (AUTO) 0.1 10^3/uL (0.0-0.7); EOSINOPHILS % (AUTO) 2.7 %; HCT - HEMATOCRIT 41.9 % (37.0-47.0); HGB - HEMOGLOBIN 13.8 g/dL (12.0-16.0); LYMPHOCYTES # (AUTO) 1.8 10^3/uL (1.5-3.5); LYMPHOCYTES % (AUTO) 36.3 %; MEAN CORPUSCULAR HEMOGLOBIN 31.5 pg (27.0-31.0); MEAN CORPUSCULAR HGB CONC 32.9 g/dL (32.0-36.0); MEAN CORPUSCULAR VOLUME 95.7 fL (81.0-99.0); MEAN PLATELET VOLUME 9.9 fL (7.9-10.8); MONOCYTES # (AUTO) 0.5 10^3/uL (0.0-1.0); MONOCYTES % (AUTO) 10.2 %; NEUTROPHILS # (AUTO) 2.4 10^3/uL (1.5-6.6); NEUTROPHILS % (AUTO) 49.6 %; PLT - PLATELET COUNT 175 10^3/uL (130-450); RED BLOOD COUNT 4.38 10^6/uL (4.20-5.40); RED CELL DISTRIBUTION WIDTH 13.6 % (12.0-15.0); WHITE BLOOD COUNT 4.8 x10^3/uL (4.8-10.8)
[2020-12-21 08:33] LABS: ALBUMIN 3.9 g/dL (3.2-5.5); BILIRUBIN,DIRECT 0.1 mg/dL (0.1-0.5); CREATININE 0.7 mg/dL (0.4-1.0); TOTAL PROTEIN 6.7 g/dL (6.7-8.2)
== END 2020-12-21 07:51 | disposition home or self-care (01) ==
LOC: LAB 07:50
PROVIDERS: ATTEND Physician Assistant Medical
DX: L20.89 Other atopic dermatitis (principal); Z79.899 Other long term (current) drug therapy
CPT/HCPCS: 36415; 80076; 82565; 84520; 85025

== ENCOUNTER 2021-01-21 09:17 | Outpatient (CLI) | payer MEDICARE, OTHER ==
[2021-01-21 09:29] LABS: BASOPHILS # (AUTO) 0.1 10^3/uL (0.0-0.1); BASOPHILS % (AUTO) 1.1 %; EOSINOPHILS # (AUTO) 0.1 10^3/uL (0.0-0.7); EOSINOPHILS % (AUTO) 2.4 %; HCT - HEMATOCRIT 43.6 % (37.0-47.0); LYMPHOCYTES # (AUTO) 1.7 10^3/uL (1.5-3.5); LYMPHOCYTES % (AUTO) 36.9 %; MEAN CORPUSCULAR HEMOGLOBIN 31.1 pg (27.0-31.0); MEAN CORPUSCULAR HGB CONC 32.1 g/dL (32.0-36.0); MEAN CORPUSCULAR VOLUME 96.9 fL (81.0-99.0); MEAN PLATELET VOLUME 9.3 fL (7.9-10.8); MONOCYTES # (AUTO) 0.5 10^3/uL (0.0-1.0); MONOCYTES % (AUTO) 11.2 %; NEUTROPHILS # (AUTO) 2.2 10^3/uL (1.5-6.6); NEUTROPHILS % (AUTO) 48.2 %; PLT - PLATELET COUNT 171 10^3/uL (130-450); RED CELL DISTRIBUTION WIDTH 13.9 % (12.0-15.0); WHITE BLOOD COUNT 4.6 x10^3/uL (4.8-10.8)
[2021-01-21 09:46] LABS: ALBUMIN 4.1 g/dL (3.2-5.5); ALKALINE PHOSPHATASE 64 IU/L (42-121); ALT ALANINE AMINOTRANSFERASE 23 IU/L (10-60); AST ASPARTATE AMINOTRANSFERASE 23 IU/L (10-42); BILIRUBIN,TOTAL 0.7 mg/dL (0.2-1.0); BUN - BLOOD UREA NITROGEN 13 mg/dL (6-20); CREATININE 0.7 mg/dL (0.4-1.0); GFR - MDRD 81 (>89); TOTAL PROTEIN 7.2 g/dL (6.7-8.2)
[2021-01-21 09:51] LABS: BILIRUBIN,DIRECT < 0.1 mg/dL (0.1-0.5)
== END 2021-01-21 09:18 | disposition home or self-care (01) ==
LOC: LAB 09:17
PROVIDERS: ATTEND Physician Assistant Medical
DX: L20.89 Other atopic dermatitis (principal); Z79.899 Other long term (current) drug therapy
CPT/HCPCS: 36415; 80076; 82565; 84520; 85025

== ENCOUNTER 2021-01-29 09:29 | Outpatient (CLI) | payer MEDICARE, OTHER ==
[2021-01-29 14:09] LABS: THYROID STIMULATING HORMONE 0.97 uIU/mL (0.34-5.60)
== END 2021-01-29 23:59 | disposition home or self-care (01) ==
LOC: LAB.WCP 09:29
PROVIDERS: ATTEND Family Medicine
DX: K59.00 Constipation, unspecified (principal)
CPT/HCPCS: 36415; 84443

== ENCOUNTER 2021-02-15 23:54 | Emergency (ER) | payer MEDICARE, OTHER ==
[2021-02-16 00:42] LABS: BASOPHILS # (AUTO) 0.1 10^3/uL (0.0-0.1); BASOPHILS % (AUTO) 1.1 %; EOSINOPHILS # (AUTO) 0.1 10^3/uL (0.0-0.7); EOSINOPHILS % (AUTO) 2.3 %; HGB - HEMOGLOBIN 14.2 g/dL (12.0-16.0); LYMPHOCYTES # (AUTO) 2.3 10^3/uL (1.5-3.5); LYMPHOCYTES % (AUTO) 40.8 %; MEAN CORPUSCULAR HGB CONC 32.3 g/dL (32.0-36.0); MEAN CORPUSCULAR VOLUME 96.1 fL (81.0-99.0); MEAN PLATELET VOLUME 9.7 fL (7.9-10.8); MONOCYTES # (AUTO) 0.7 10^3/uL (0.0-1.0); MONOCYTES % (AUTO) 11.8 %; NEUTROPHILS # (AUTO) 2.5 10^3/uL (1.5-6.6); NEUTROPHILS % (AUTO) 43.8 %; PLT - PLATELET COUNT 178 10^3/uL (130-450); RED BLOOD COUNT 4.58 10^6/uL (4.20-5.40); RED CELL DISTRIBUTION WIDTH 13.5 % (12.0-15.0); WHITE BLOOD COUNT 5.6 x10^3/uL (4.8-10.8)
[2021-02-16 00:45] LABS: VBG BASE EXCESS 2.7 mmol/L (-2 - +2); VBG HCO3 28.7 mmol/L (23-28); VBG OXYGEN SATURATION 64.2 % (60-80); VBG PCO2 49.3 mmHg (41-51); VBG PH 7.383 (7.31-7.41); VBG PO2 32.6 mmHg (25-47); VBG TOTAL CO2 30.2 mmol/L (24-29)
[2021-02-16 00:54] LABS: ALBUMIN 4.1 g/dL (3.2-5.5); ALBUMIN/GLOBULIN RATIO 1.4 (1.0-2.2); BILIRUBIN,TOTAL 0.8 mg/dL (0.2-1.0); CALCIUM 9.4 mg/dL (8.5-10.3); CREATININE 0.6 mg/dL (0.4-1.0); TOTAL PROTEIN 7.1 g/dL (6.7-8.2)
--- NOTE | 2021-02-16 01:17 | ED Physician Documentation ---
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 Baires, presents with shortness of air for the past 2 - 3 days, intermittent, nonexertional, without associated cough or fever. patient states she has insomnia and tried taking tylenol PM the past couple of days and it seemed to make her SOA worse. also worse with lying down. patient sleeps with 1 thin pillow, denies leg swelling, denies GOULD. normally walks 1/2 mile daily but stopped this week. denies cp, nausea, lightheadedness, but does endorse "wooziness like the flu". Stress test and echo were done in may per her report and were good. Review of Systems Ten Systems: 10 systems reviewed and negative Constitutional: reports: Fatigue. denies: Fever, Chills, Myalgias Cardiac: denies: Chest pain / pressure, Palpitations Respiratory: reports: Dyspnea. 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 HEENT: Cataracts - Present Medications Home Medications: Ambulatory Orders Medication Instructions Recorded Confirmed Halobetasol Propionate 1 applic TP DAILY PRN 04/27/20 02/16/21 Methotrexate [Methotrexate Sodium] 15 mg PO DAILY 04/27/20 02/16/21 Prednisone [Ryan] 2 mg PO DAILY 02/16/21 02/16/21 - Allergies Allergies/Adverse Reactions: Allergies Allergy/AdvReac Type Severity Reaction Status Date / Time levofloxacin [From Levaquin] Allergy Mild Rash Verified 02/16/21 00:06 niacin Allergy Mild Rash Verified 02/16/21 00:06 amoxicillin [Amoxicillin] Allergy Rash Verified 02/16/21 00:06 dupilumab [From Dupixent] Allergy Rash Verified 02/16/21 00:06 ezetimibe [From Zetia] Allergy Rash Verified 02/16/21 00:06 furosemide [From Lasix] Allergy Rash Verified 02/16/21 00:06 Vmlphvx-HHM-JdS Reductase Allergy Rash Verified 02/16/21 00:06 Inhibitor [Oaywufg-Xcc-Ghe Reductase Inhibitor] Sulfa (Sulfonamide Allergy Rash Verified 02/16/21 00:06 Antibiotics) Tetracyclines Allergy Rash Verified 02/16/21 00:06 diltiazem AdvReac Mild Rash Verified 02/16/21 00:06 - Social History Does the pt smoke?: No Smoking Status: Never smoker Does the pt drink ETOH?: No Does the pt have substance abuse?: No - Immunizations Immunizations are current?: Yes - POLST Patient has POLST: No PD ED PE NORMAL - Vitals Vital signs reviewed: Yes - General General: Alert and oriented X 3, No acute distress, Well developed/nourished - HEENT HEENT: Atraumatic, PERRL, EOMI - Neck Neck: Supple, no meningeal sign - Cardiac Cardiac: RRR - Respiratory Respiratory: No respiratory distress, Clear bilaterally - Abdomen Abdomen: Non tender, Non distended - Derm Derm: Normal color, Warm and dry - Extremities Extremities: No edema - Neuro Neuro: Alert and oriented X 3, No motor deficit, No sensory deficit - Psych Psych: Normal mood, Normal affect Results - Vitals Vitals: Vital Signs - 24 hr 02/15/21 02/16/21 02/16/21 23:58 00:38 01:50 Temperature 36.4 C L Heart Rate 70 60 62 Respiratory 16 11 L 14 Rate Blood Pressure 109/96 H 139/93 H 131/65 H O2 Saturation 99 98 98 Oxygen O2 Source Room air - EKG (time done) 0044 Rate: Rate (enter#) (58) Rhythm: NSR [place]: Normal Intervals: Normal NM QRS: Normal Ischemia: Normal ST segments - Labs Labs: Laboratory Tests 02/16/21 02/16/21 02/16/21 00:34 00:34 00:34 WBC 5.6 RBC 4.58 Hgb 14.2 Hct 44.0 MCV 96.1 MCH 31.0 MCHC 32.3 RDW 13.5 Plt Count 178 MPV 9.7 Neut # (Auto) 2.5 Lymph # (Auto) 2.3 Mason # (Auto) 0.7 Eos # (Auto) 0.1 Baso # (Auto) 0.1 Absolute Nucleated RBC 0.00 Nucleated RBC % 0.0 VBG pH VBG pCO2 VBG pO2 VBG HCO3 VBG Total CO2 VBG O2 Saturation VBG Base Excess Sodium 140 Potassium 4.0 Chloride 102 Carbon Dioxide 29 Anion Gap 9.0 BUN 16 Creatinine 0.6 Estimated GFR (MDRD) 96 Glucose 86 Calcium 9.4 Total Bilirubin 0.8 AST 19 ALT 19 Alkaline Phosphatase 56 Troponin I High Sens 3.7 B-Natriuretic Peptide Total Protein 7.1 Albumin 4.1 Globulin 3.0 Albumin/Globulin Ratio 1.4 Lipase 32 02/16/21 02/16/21 00:34 00:34 WBC RBC Hgb Hct MCV MCH MCHC RDW Plt Count MPV Neut # (Auto) Lymph # (Auto) Mason # (Auto) Eos # (Auto) Baso # (Auto) Absolute Nucleated RBC Nucleated RBC % VBG pH 7.383 VBG pCO2 49.3 VBG pO2 32.6 VBG HCO3 28.7 H VBG Total CO2 30.2 H VBG O2 Saturation 64.2 VBG Base Excess 2.7 H Sodium Potassium Chloride Carbon Dioxide Anion Gap BUN Creatinine Estimated GFR (MDRD) Glucose Calcium Total Bilirubin AST ALT Alkaline Phosphatase Troponin I High Sens B-Natriuretic Peptide 17 Total Protein Albumin Globulin Albumin/Globulin Ratio Lipase PD MEDICAL DECISION MAKING - ED course ED course: 80-year-old woman presented with subjective shortness of breath with unremarkable exam and lab work. Patient was reassured and would like to follow- up with her primary Dr. Baires and delicatessen goods stock clerk. She has monthly appointments with cardiology and will call Dr. Baires this week. Return precautions given. Departure - Departure Disposition: 01 Home, Self Care Clinical Impression: Shortness of breath Condition: Good Instructions: ED Dyspnea Shortness of Breath Comments: You were seen in the emergency department for shortness of breath. Your labwork, exam, and chest xray uncovered no emergent findings. You are not in heart failure. 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 Baires this week for follow up appointments. Return to the emergency department if you have any new or worsening symptoms or other concerns. Discharge Date/Time: 02/16/21 02:05
[2021-02-16 01:50] VITALS: BP 131/65
--- NOTE | 2021-02-16 02:00 | XRAY Report ---
PROCEDURE: Chest 1 View X-Ray INDICATIONS: Chest Pain TECHNIQUE: One view of the chest was acquired. COMPARISON: Chest x-ray report 04/27/2020. Images not available. FINDINGS: Surgical changes and devices: None. Lungs and pleura: No pleural effusions or pneumothorax. Lungs are clear. Mediastinum: Mediastinal contours appear normal. Heart size is normal. Bones and chest wall: No suspicious bony lesions. Overlying soft tissues appear unremarkable. Conv ex right thoracic scoliosis. Osteopenia IMPRESSION: No acute cardiopulmonary findings Reviewed by: Robert Cespedes MD on 02/16/2021 12:58 AM CAROLE Approved by: Robert Cespedes MD on 02/16/2021 12:58 AM CAROLE Station ID: [id number]
== END 2021-02-16 02:05 | disposition home or self-care (01) ==
LOC: ED 23:54
DX: R06.02 Shortness of breath (principal); G47.00 Insomnia, unspecified; R53.1 Weakness
CPT/HCPCS: 36415; 80053; 82803; 83690; 83880; 84484; 85025; 93005; 99282; 99284

== ENCOUNTER 2021-02-22 07:54 | Outpatient (CLI) | payer MEDICARE, OTHER ==
[2021-02-22 08:09] LABS: BASOPHILS # (AUTO) 0.1 10^3/uL (0.0-0.1); BASOPHILS % (AUTO) 1.1 %; EOSINOPHILS # (AUTO) 0.2 10^3/uL (0.0-0.7); EOSINOPHILS % (AUTO) 3.4 %; HGB - HEMOGLOBIN 14.2 g/dL (12.0-16.0); LYMPHOCYTES % (AUTO) 43.8 %; MEAN CORPUSCULAR HEMOGLOBIN 31.3 pg (27.0-31.0); MEAN CORPUSCULAR HGB CONC 32.3 g/dL (32.0-36.0); MEAN CORPUSCULAR VOLUME 96.9 fL (81.0-99.0); MEAN PLATELET VOLUME 9.6 fL (7.9-10.8); MONOCYTES # (AUTO) 0.5 10^3/uL (0.0-1.0); MONOCYTES % (AUTO) 10.1 %; NEUTROPHILS # (AUTO) 1.9 10^3/uL (1.5-6.6); NEUTROPHILS % (AUTO) 41.4 %; PLT - PLATELET COUNT 178 10^3/uL (130-450); RED BLOOD COUNT 4.54 10^6/uL (4.20-5.40); RED CELL DISTRIBUTION WIDTH 13.6 % (12.0-15.0); WHITE BLOOD COUNT 4.5 x10^3/uL (4.8-10.8)
== END 2021-02-22 07:55 | disposition home or self-care (01) ==
LOC: LAB 07:54
PROVIDERS: ATTEND Physician Assistant Medical
DX: Z79.899 Other long term (current) drug therapy (principal); L20.89 Other atopic dermatitis
CPT/HCPCS: 36415; 85025

== ENCOUNTER 2021-02-27 10:20 | Outpatient (CLI) | payer MEDICARE, OTHER ==
[2021-02-27 11:30] LABS: ALBUMIN 4.3 g/dL (3.2-5.5); BILIRUBIN,DIRECT 0.2 mg/dL (0.1-0.5); BILIRUBIN,TOTAL 0.9 mg/dL (0.2-1.0); CREATININE 0.6 mg/dL (0.4-1.0); TOTAL PROTEIN 6.5 g/dL (6.7-8.2)
== END 2021-02-27 10:21 | disposition home or self-care (01) ==
LOC: LAB 10:20
PROVIDERS: ATTEND Physician Assistant Medical
DX: Z79.899 Other long term (current) drug therapy (principal)
CPT/HCPCS: 36415; 80076; 82565; 84520

== ENCOUNTER 2021-03-15 07:14 | Outpatient (CLI) | payer MEDICARE, OTHER ==
--- NOTE | 2021-03-15 08:20 | CT Report ---
PROCEDURE: CHEST WO INDICATIONS: SHORTNESS OF BREATH TECHNIQUE: Noncontrast 1mm axial images were acquired from the pulmonary apices to the posterior costophrenic an gles. Axial 5 mm soft tissue kernel reconstructions were performed as well as 8 mm axial MIP and cor onal and sagittal 5 mm reformations. For radiation dose reduction, the following was used: automate d exposure control, adjustment of mA and/or kV according to patient size. COMPARISON: Chest x-ray one view, 02/16/2021. FINDINGS: Image quality: Mild respiratory motion artifacts. Lungs and pleura: Lingular scars and atelectasis. Mild groundglass infiltrate in the left lower lobe . No pleural effusions or pneumothorax. Central and peripheral airways are patent and normal in ayanna ana cristina. Small lung nodules are present bilaterally. Social Media Assistant nodules are listed in the following: Nodule 1:5 mm; right upper lobe lateral; series 4 image 51; groundglass. Nodule 2:3 mm; right upper lobe lateral; series 4 image 58; solid. Nodule 3:4 mm; right lower lobe; series 4 image 110; solid. Nodule 4: 4 mm; left upper lobe; series 4 image 111; calcified. Nodule 5:2 mm; left upper lobe; series 4 image 111; solid. Mediastinum: Heart size is normal. No pericardial effusion. No mediastinal adenopathy by size crit eria. Thoracic aorta and central pulmonary arteries are normal in size. Esophagus is normal in ayanna ana cristina. No hiatal hernia. Bones and chest wall: No suspicious bony lesions. Chronic appearing moderate vertebral body compress ion fracture of L1. No axillary or supraclavicular adenopathy by size criteria. The thyroid is norm al in size and there are no incidental findings. Abdomen: There is a 0.9 cm low-density nodule in liver, most likely a cyst. Visualized upper abdomin al solid organs and bowel loops appear normal in the absence of contrast. IMPRESSION: 1. Mild groundglass infiltrate in the left lower lobe. 2. Lingular scars and atelectasis. 3. Multiple small lung nodules are present bilaterally. Please see enclosed follow-up recommendation. 4. Chronic moderate compression fracture of L1. Fleischner Society criteria for SOLID lung nodule followup. Nodule size (mm)Low-risk patientHigh-risk patient "d4No follow-up neededFollow-up at 12 mo; if no change, no further follow-up >5-2Hytpsd-as CT at 12 mo; if no change, no further follow-up needed.Initial follow-up CT at 6-12 mo, then 18-24 mo if no change. >6-8Initial follow-up CT at 6-12 mo, then 18-24 mo if no change. Initial follow-up CT at 3-6 mo, then 9-12 mo and 24 mo if no change. >8Follow-up CT at 3, 9, 24 mo. Or PET and/or biopsy.Same as for low-risk pts. Fleischner Society criteria for SUB-SOLID lung nodule followup. Solitary pure ground-glass nodules 5 mm or lessNo followup needed. >5 mm3 mo follow-up CT to confirm persistence. Then annual CT for 3 years. Part-solid nodules3 mo follow-up CT to confirm persistence. If persistent with solid component <5 mm , annual CT for at least 3 years. If solid component is 5 mm or more, biopsy or surgical resection. Consider PET-CT for lesions > 10 mm. Multiple sub-solid nodules Pure ground glass nodules [address] at 2 and 4 years. Pure ground glass nodules >5 mm without dominant lesion. [address] to confirm persistence, then annual followup CT for at least 3 years. Dominant nodule(s) with part-solid or solid component. [address] to confirm persistence. If persistent, consider biopsy or surgical resection, bonita if lesions have >5 mm solid component. Reviewed by: Cleveland Stewart MD on 03/15/2021 8:19 AM PST Approved by: Cleveland Stewart MD on 03/15/2021 8:19 AM PST Station ID: [id number]
== END 2021-03-15 07:15 | disposition home or self-care (01) ==
LOC: DI 07:14
PROVIDERS: ATTEND Family Medicine
DX: R91.8 Other nonspecific abnormal finding of lung field (principal); J98.11 Atelectasis; J98.4 Other disorders of lung; M48.56XA Collapsed vertebra, not elsewhere classified, lumbar region, initial encounter for fracture; Z91.89 Other specified personal risk factors, not elsewhere classified

== ENCOUNTER 2021-03-25 07:42 | Outpatient (CLI) | payer MEDICARE, OTHER ==
[2021-03-25 07:56] LABS: BASOPHILS # (AUTO) 0.1 10^3/uL (0.0-0.1); BASOPHILS % (AUTO) 1.1 %; EOSINOPHILS # (AUTO) 0.3 10^3/uL (0.0-0.7); EOSINOPHILS % (AUTO) 4.8 %; HCT - HEMATOCRIT 43.3 % (37.0-47.0); HGB - HEMOGLOBIN 14.4 g/dL (12.0-16.0); LYMPHOCYTES # (AUTO) 2.3 10^3/uL (1.5-3.5); LYMPHOCYTES % (AUTO) 44.1 %; MEAN CORPUSCULAR HEMOGLOBIN 31.8 pg (27.0-31.0); MEAN CORPUSCULAR HGB CONC 33.3 g/dL (32.0-36.0); MEAN CORPUSCULAR VOLUME 95.6 fL (81.0-99.0); MEAN PLATELET VOLUME 9.7 fL (7.9-10.8); MONOCYTES # (AUTO) 0.5 10^3/uL (0.0-1.0); MONOCYTES % (AUTO) 8.8 %; NEUTROPHILS # (AUTO) 2.1 10^3/uL (1.5-6.6); NEUTROPHILS % (AUTO) 40.8 %; PLT - PLATELET COUNT 176 10^3/uL (130-450); RED BLOOD COUNT 4.53 10^6/uL (4.20-5.40); RED CELL DISTRIBUTION WIDTH 13.4 % (12.0-15.0); WHITE BLOOD COUNT 5.2 x10^3/uL (4.8-10.8)
[2021-03-25 08:14] LABS: BILIRUBIN,DIRECT 0.1 mg/dL (0.1-0.5); BILIRUBIN,TOTAL 0.8 mg/dL (0.2-1.0); CREATININE 0.6 mg/dL (0.4-1.0); TOTAL PROTEIN 6.9 g/dL (6.7-8.2)
== END 2021-03-25 07:43 | disposition home or self-care (01) ==
LOC: LAB 07:42
PROVIDERS: ATTEND Physician Assistant Medical
DX: L20.89 Other atopic dermatitis (principal); Z79.899 Other long term (current) drug therapy
CPT/HCPCS: 36415; 80076; 82565; 84520; 85025

== ENCOUNTER 2021-04-14 18:34 | Outpatient (CLI) | payer MEDICARE, OTHER | END 2021-04-14 18:35 | disposition critical access hospital (66) | LOC: EMS 18:34 | DX: R07.89 Other chest pain (principal); R11.0 Nausea | CPT/HCPCS: A0425; A0429 ==

== ENCOUNTER 2021-04-14 18:39 | Emergency (ER) | payer MEDICARE, OTHER ==
--- NOTE | 2021-04-14 19:15 | XRAY Report ---
PROCEDURE: Chest 1 View X-Ray INDICATIONS: Chest Pain TECHNIQUE: One view of the chest was acquired. COMPARISON: 02/16/2021 chest x-ray FINDINGS: Surgical changes and devices: None. Lungs and pleura: No pleural effusions or pneumothorax. Lungs are clear. Mediastinum: Mediastinal contours appear normal. Heart size is normal. Bones and chest wall: No suspicious bony lesions. Overlying soft tissues appear unremarkable. IMPRESSION: No acute process. Reviewed by: Martha Pérez MD on 04/14/2021 7:14 PM PST Approved by: Martha Pérez MD on 04/14/2021 7:[address] [facility] Station ID: [id number]
[2021-04-14 19:18] LABS: BASOPHILS % (AUTO) 0.8 %; EOSINOPHILS # (AUTO) 0.1 10^3/uL (0.0-0.7); EOSINOPHILS % (AUTO) 1.6 %; HGB - HEMOGLOBIN 14.7 g/dL (12.0-16.0); LYMPHOCYTES # (AUTO) 1.3 10^3/uL (1.5-3.5); LYMPHOCYTES % (AUTO) 25.6 %; MEAN CORPUSCULAR HEMOGLOBIN 30.9 pg (27.0-31.0); MEAN CORPUSCULAR HGB CONC 33.4 g/dL (32.0-36.0); MEAN CORPUSCULAR VOLUME 92.4 fL (81.0-99.0); MEAN PLATELET VOLUME 9.7 fL (7.9-10.8); MONOCYTES # (AUTO) 0.4 10^3/uL (0.0-1.0); MONOCYTES % (AUTO) 8.6 %; NEUTROPHILS # (AUTO) 3.1 10^3/uL (1.5-6.6); PLT - PLATELET COUNT 179 10^3/uL (130-450); RED BLOOD COUNT 4.76 10^6/uL (4.20-5.40); RED CELL DISTRIBUTION WIDTH 13.2 % (12.0-15.0); WHITE BLOOD COUNT 4.9 x10^3/uL (4.8-10.8)
[2021-04-14 19:23] LABS: INR 0.9 (0.8-1.2); PT - PROTHROMBIN TIME 10.4 secs (9.9-12.6)
--- NOTE | 2021-04-14 19:27 | ED Physician Documentation ---
PD HPI CHEST PAIN - Stated complaint Stated Complaint: CHEST DISCOMFORT, UPSET STOMACH - Chief complaint Chief Complaint: Cardiac - History obtained from History obtained from: Patient, EMS - History of Present Illness Timing - onset: How many hours ago (onset of lower chest/epigastric pain while sitting at rest this afternoon. Lasted over an hour and so called EMS. Improved enroute, though still faintly there.), Today Timing - onset during: Rest Timing - duration: Hours (1) Timing - details: Abrupt onset, Now resolved (mostly, with just faint discomfort now.) Quality: Aching, Pain Location: Substernal, Epigastric Improved by: No: Rest Worsened by: No: Inspiration, Movement Associated symptoms: Nausea, Feeling faint / dizzy. No: Shortness of air, Palpitations, Cough Similar symptoms before: No diagnosis (she describes having chest discomfort episodes in the past. She states heart cath without occlusions found few years ago. Some other procedural cath as well (not sure if ablation by description). Had heart stress test end 2019 without ischemic findiings, per patient. These were by Care Provider.) Recently seen: Not recently seen Review of Systems Constitutional: denies: Fever, Chills Nose: denies: Rhinorrhea / runny nose, Congestion Throat: denies: Sore throat Cardiac: reports: Chest pain / pressure (this evening at rest in chair at home. She states she does get dyspnea on exertion regularly but no chest pain with activity per se.). denies: Palpitations, Pedal edema, Calf pain Respiratory: denies: Cough GI: denies: Abdominal Pain, Nausea, Vomiting, Diarrhea Neurologic: denies: Generalized weakness, Near syncope PD PAST MEDICAL HISTORY - Past Medical History Past Medical History: Yes Cardiovascular: High cholesterol, Coronary artery disease, Angina, Atrial fibrillation, Murmur, Valve disorder Respiratory: None Endocrine/Autoimmune: None GI: Colon polyps, Hemorrhoids : None Psych: None Musculoskeletal: Rheumatoid arthritis, Chronic back pain Derm: None - Past Surgical History Past Surgical History: Yes General: Colonoscopy Ortho: Carpal Tunnel surgery /CONTINUOUS IMPROVEMENT BLACK BELT: 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 Cardiovascular: Other HEENT: Cataracts - Present Medications Home Medications: Ambulatory Orders Medication Instructions Recorded Confirmed Halobetasol Propionate 1 applic TP DAILY PRN 04/27/20 02/16/21 Methotrexate [Methotrexate Sodium] 25 mg PO DAILY 04/27/20 02/16/21 Prednisone [Ryan] 5 mg PO DAILY 02/16/21 02/16/21 Omeprazole Magnesium 20 mg PO DAILY 04/14/21 04/14/21 Sucralfate [Carafate] 1 gm PO ACHS #28 tablet 04/14/21 - Allergies Allergies/Adverse Reactions: Allergies Allergy/AdvReac Type Severity Reaction Status Date / Time levofloxacin [From Levaquin] Allergy Mild Rash Verified 02/16/21 00:06 niacin Allergy Mild Rash Verified 02/16/21 00:06 amoxicillin [Amoxicillin] Allergy Rash Verified 02/16/21 00:06 cefdinir Allergy Unknown Verified 04/14/21 19:35 colestipol [From Colestid] Allergy Unknown Verified 04/14/21 19:35 dupilumab [From Dupixent] Allergy Rash Verified 02/16/21 00:06 ezetimibe [From Zetia] Allergy Rash Verified 02/16/21 00:06 furosemide [From Lasix] Allergy Rash Verified 02/16/21 00:06 metoprolol Allergy Unknown Verified 04/14/21 19:35 Glqxsbm-EVH-KrI Reductase Allergy Rash Verified 02/16/21 00:06 Inhibitor [Iybvyfl-Ees-Dcp Reductase Inhibitor] Sulfa (Sulfonamide Allergy Rash Verified 02/16/21 00:06 Antibiotics) Tetracyclines Allergy Rash Verified 02/16/21 00:06 diltiazem AdvReac Mild Rash Verified 02/16/21 00:06 - Social History Does the pt smoke?: No Smoking Status: Never smoker Does the pt drink ETOH?: No Does the pt have substance abuse?: No - Immunizations Immunizations are current?: Yes - POLST Patient has POLST: No PD ED PE NORMAL - Vitals Vital signs reviewed: Yes - General General: Alert and oriented X 3, No acute distress, Well developed/nourished - HEENT HEENT: Moist mucous membranes, Pharynx benign - Neck Neck: Supple, no meningeal sign, No adenopathy - Cardiac Cardiac: RRR, No murmur - Respiratory Respiratory: Clear bilaterally - Abdomen Abdomen: Soft, Non tender - Back Back: No CVA TTP - Derm Derm: Normal color, Warm and dry - Extremities Extremities: No tenderness to palpate, Normal ROM s pain, No edema, No calf tenderness / cord - Neuro Neuro: Alert and oriented X 3, No motor deficit, Normal speech Results - Vitals Vitals: Vital Signs - 24 hr 04/14/21 04/14/21 04/14/21 18:51 18:59 21:00 Temperature 36.9 C 36.9 C Heart Rate 84 84 70 Respiratory 16 16 16 Rate Blood Pressure 140/88 H 140/88 H 131/78 H O2 Saturation 100 100 99 Oxygen O2 Source Room air - EKG (time done) 18:47 Rate: Rate (enter#) (74) Rhythm: NSR [place]: Normal Intervals: Normal OR Ischemia: Normal ST segments. No: ST elevation c/w ischemia, ST depression - Labs Labs: Laboratory Tests 04/14/21 04/14/21 04/14/21 19:11 19:11 19:11 WBC 4.9 RBC 4.76 Hgb 14.7 Hct 44.0 MCV 92.4 MCH 30.9 MCHC 33.4 RDW 13.2 Plt Count 179 MPV 9.7 Neut # (Auto) 3.1 Lymph # (Auto) 1.3 L [place] # (Auto) 0.4 Eos # (Auto) 0.1 Baso # (Auto) 0.0 Absolute Nucleated RBC 0.00 Nucleated RBC % 0.0 PT 10.4 INR 0.9 Sodium Potassium Chloride Carbon Dioxide Anion Gap BUN Creatinine Estimated GFR (MDRD) Glucose Calcium Total Bilirubin AST ALT Alkaline Phosphatase Troponin I High Sens B-Natriuretic Peptide 20 Total Protein Albumin Globulin Albumin/Globulin Ratio Lipase 04/14/21 04/14/21 19:11 19:11 WBC RBC Hgb Hct MCV MCH MCHC RDW Plt Count MPV Neut # (Auto) Lymph # (Auto) [place] # (Auto) Eos # (Auto) Baso # (Auto) Absolute Nucleated RBC Nucleated RBC % PT INR Sodium 134 L Potassium 3.8 Chloride 98 L Carbon Dioxide 26 Anion Gap 10.0 BUN 16 Creatinine 0.6 Estimated GFR (MDRD) 96 Glucose 115 H Calcium 9.2 Total Bilirubin 0.8 AST 20 ALT 17 Alkaline Phosphatase 59 Troponin I High Sens 4.3 B-Natriuretic Peptide Total Protein 7.4 Albumin 4.2 Globulin 3.2 Albumin/Globulin Ratio 1.3 Lipase 30 - Rads (name of study) chest xray Radiology: Prelim report reviewed (no acute process), See rad report PD MEDICAL DECISION MAKING - ED course Complexity details: reviewed results, re-evaluated patient (symptoms could be gerd/reflux. Are mostly gone now. ECG, Trop, CXR appear okay. ), considered differential, d/w patient Departure - Departure Disposition: 01 Home, Self Care Clinical Impression: Epigastric pain Condition: Stable Record reviewed to determine appropriate education?: Yes Instructions: ED Epigastric Pain [facility] Follow-Up: Janelle Baires DO [Primary Care Provider] - Albino Valera MD [Provider Admit Priv/Credential] - Prescriptions: Sucralfate [Carafate] 1 gm PO ACHS #28 tablet Comments: Your EKG, chest x-ray, blood tests are normal here without any signs of heart failure or heart attack. I think your symptoms are more likely related to stomach irritation or esophageal irritation from reflux. I would have you increase your Prilosec to twice daily for the next week and also add sacral fate 3-4 times daily to help coat the stomach. Follow-up with your primary care if not improved well over the next several days. Return to the ER as needed. Discharge Date/Time: 04/14/21 21:14
[2021-04-14 19:36] LABS: ALBUMIN 4.2 g/dL (3.2-5.5); ALBUMIN/GLOBULIN RATIO 1.3 (1.0-2.2); BILIRUBIN,TOTAL 0.8 mg/dL (0.2-1.0); CALCIUM 9.2 mg/dL (8.5-10.3); CREATININE 0.6 mg/dL (0.4-1.0); POTASSIUM 3.8 mmol/L (3.5-5.0); TOTAL PROTEIN 7.4 g/dL (6.7-8.2)
[2021-04-14] MEDS ORDERED: SUCRALFATE 1 GM/10 ML UDC PO STA (19:42)
[2021-04-14 21:09] VITALS: BP 131/78
== END 2021-04-14 21:14 | disposition home or self-care (01) ==
LOC: EDUNIT# → ED 18:39
DX: R10.13 Epigastric pain (principal); R07.89 Other chest pain; R06.09 Other forms of dyspnea; I25.10 Atherosclerotic heart disease of native coronary artery without angina pectoris
CPT/HCPCS: 36415; 71045; 80053; 83690; 83880; 84484; 85025; 85610; 93005; 99284; A9270

== ENCOUNTER 2021-05-06 08:05 | Outpatient (CLI) | payer MEDICARE, OTHER ==
[2021-05-06 08:19] LABS: BASOPHILS # (AUTO) 0.1 10^3/uL (0.0-0.1); BASOPHILS % (AUTO) 0.9 %; EOSINOPHILS # (AUTO) 0.1 10^3/uL (0.0-0.7); EOSINOPHILS % (AUTO) 1.8 %; HCT - HEMATOCRIT 43.7 % (37.0-47.0); HGB - HEMOGLOBIN 14.2 g/dL (12.0-16.0); LYMPHOCYTES # (AUTO) 2.1 10^3/uL (1.5-3.5); LYMPHOCYTES % (AUTO) 38.3 %; MEAN CORPUSCULAR HEMOGLOBIN 30.8 pg (27.0-31.0); MEAN CORPUSCULAR HGB CONC 32.5 g/dL (32.0-36.0); MEAN CORPUSCULAR VOLUME 94.8 fL (81.0-99.0); MEAN PLATELET VOLUME 9.6 fL (7.9-10.8); MONOCYTES # (AUTO) 0.6 10^3/uL (0.0-1.0); MONOCYTES % (AUTO) 10.5 %; NEUTROPHILS # (AUTO) 2.7 10^3/uL (1.5-6.6); NEUTROPHILS % (AUTO) 47.8 %; PLT - PLATELET COUNT 175 10^3/uL (130-450); RED BLOOD COUNT 4.61 10^6/uL (4.20-5.40); RED CELL DISTRIBUTION WIDTH 13.6 % (12.0-15.0); WHITE BLOOD COUNT 5.5 x10^3/uL (4.8-10.8)
[2021-05-06 08:35] LABS: ALBUMIN 3.9 g/dL (3.2-5.5); BILIRUBIN,DIRECT 0.1 mg/dL (0.1-0.5); BILIRUBIN,TOTAL 0.9 mg/dL (0.2-1.0); CREATININE 0.5 mg/dL (0.4-1.0); TOTAL PROTEIN 6.7 g/dL (6.7-8.2)
== END 2021-05-06 08:06 | disposition home or self-care (01) ==
LOC: LAB 08:05
PROVIDERS: ATTEND Physician Assistant Medical
DX: L20.89 Other atopic dermatitis (principal); Z79.899 Other long term (current) drug therapy
CPT/HCPCS: 36415; 80076; 82565; 84520; 85025

== ENCOUNTER 2021-05-27 11:54 | Outpatient (CLI) | payer MEDICARE, OTHER | END 2021-05-27 11:55 | disposition home or self-care (01) | LOC: RT 11:54 | PROVIDERS: ATTEND Family Medicine | DX: R06.02 Shortness of breath (principal); Z79.899 Other long term (current) drug therapy | CPT/HCPCS: 94010; 94729 ==

== ENCOUNTER 2021-05-31 07:08 | Outpatient (CLI) | payer MEDICARE, OTHER ==
[2021-05-31 07:23] LABS: BASOPHILS % (AUTO) 0.8 %; EOSINOPHILS # (AUTO) 0.2 10^3/uL (0.0-0.7); EOSINOPHILS % (AUTO) 2.8 %; HGB - HEMOGLOBIN 14.6 g/dL (12.0-16.0); LYMPHOCYTES # (AUTO) 2.2 10^3/uL (1.5-3.5); LYMPHOCYTES % (AUTO) 42.3 %; MEAN CORPUSCULAR HGB CONC 32.4 g/dL (32.0-36.0); MEAN CORPUSCULAR VOLUME 95.5 fL (81.0-99.0); MEAN PLATELET VOLUME 9.6 fL (7.9-10.8); MONOCYTES # (AUTO) 0.5 10^3/uL (0.0-1.0); MONOCYTES % (AUTO) 9.1 %; NEUTROPHILS # (AUTO) 2.4 10^3/uL (1.5-6.6); NEUTROPHILS % (AUTO) 44.6 %; PLT - PLATELET COUNT 178 10^3/uL (130-450); RED BLOOD COUNT 4.71 10^6/uL (4.20-5.40); RED CELL DISTRIBUTION WIDTH 13.3 % (12.0-15.0); WHITE BLOOD COUNT 5.3 x10^3/uL (4.8-10.8)
[2021-05-31 07:43] LABS: BILIRUBIN,DIRECT 0.2 mg/dL (0.1-0.5); BILIRUBIN,TOTAL 1.4 mg/dL (0.2-1.0); CREATININE 0.7 mg/dL (0.4-1.0); TOTAL PROTEIN 7.1 g/dL (6.7-8.2)
== END 2021-05-31 07:09 | disposition home or self-care (01) ==
LOC: LAB 07:08
PROVIDERS: ATTEND Physician Assistant Medical
DX: Z79.899 Other long term (current) drug therapy (principal); L20.89 Other atopic dermatitis
CPT/HCPCS: 36415; 80076; 82565; 84520; 85025

== ENCOUNTER 2021-06-28 07:05 | Outpatient (CLI) | payer MEDICARE, OTHER ==
[2021-06-28 07:43] LABS: ALBUMIN 3.9 g/dL (3.2-5.5); BILIRUBIN,DIRECT 0.1 mg/dL (0.1-0.5); CREATININE 0.5 mg/dL (0.4-1.0); TOTAL PROTEIN 6.6 g/dL (6.7-8.2)
[2021-06-28 07:59] LABS: BASOPHILS % (AUTO) 0.6 %; EOSINOPHILS # (AUTO) 0.1 10^3/uL (0.0-0.7); HGB - HEMOGLOBIN 14.3 g/dL (12.0-16.0); LYMPHOCYTES # (AUTO) 2.3 10^3/uL (1.5-3.5); LYMPHOCYTES % (AUTO) 45.6 %; MEAN CORPUSCULAR HEMOGLOBIN 31.6 pg (27.0-31.0); MEAN CORPUSCULAR HGB CONC 33.3 g/dL (32.0-36.0); MEAN CORPUSCULAR VOLUME 95.1 fL (81.0-99.0); MONOCYTES # (AUTO) 0.5 10^3/uL (0.0-1.0); MONOCYTES % (AUTO) 9.7 %; NEUTROPHILS # (AUTO) 2.1 10^3/uL (1.5-6.6); NEUTROPHILS % (AUTO) 41.9 %; PLT - PLATELET COUNT 183 10^3/uL (130-450); RED BLOOD COUNT 4.52 10^6/uL (4.20-5.40); RED CELL DISTRIBUTION WIDTH 13.4 % (12.0-15.0)
== END 2021-06-28 07:06 | disposition home or self-care (01) ==
LOC: LAB 07:05
PROVIDERS: ATTEND Physician Assistant Medical
DX: L20.89 Other atopic dermatitis (principal); Z79.899 Other long term (current) drug therapy
CPT/HCPCS: 36415; 80076; 82565; 84520; 85025

== ENCOUNTER 2021-07-29 08:52 | Outpatient (CLI) | payer MEDICARE, OTHER ==
[2021-07-29 09:03] LABS: BASOPHILS % (AUTO) 0.6 %; EOSINOPHILS # (AUTO) 0.1 10^3/uL (0.0-0.7); EOSINOPHILS % (AUTO) 0.8 %; HCT - HEMATOCRIT 42.8 % (37.0-47.0); LYMPHOCYTES # (AUTO) 1.5 10^3/uL (1.5-3.5); LYMPHOCYTES % (AUTO) 22.8 %; MEAN CORPUSCULAR HEMOGLOBIN 31.3 pg (27.0-31.0); MEAN CORPUSCULAR HGB CONC 32.7 g/dL (32.0-36.0); MEAN CORPUSCULAR VOLUME 95.7 fL (81.0-99.0); MEAN PLATELET VOLUME 10.1 fL (7.9-10.8); MONOCYTES # (AUTO) 0.3 10^3/uL (0.0-1.0); NEUTROPHILS # (AUTO) 4.5 10^3/uL (1.5-6.6); PLT - PLATELET COUNT 172 10^3/uL (130-450); RED BLOOD COUNT 4.47 10^6/uL (4.20-5.40); RED CELL DISTRIBUTION WIDTH 13.7 % (12.0-15.0); WHITE BLOOD COUNT 6.4 x10^3/uL (4.8-10.8)
[2021-07-29 09:22] LABS: ALKALINE PHOSPHATASE 46 IU/L (42-121); ALT ALANINE AMINOTRANSFERASE 22 IU/L (10-60); AST ASPARTATE AMINOTRANSFERASE 22 IU/L (10-42); BILIRUBIN,TOTAL 1.1 mg/dL (0.2-1.0); BUN - BLOOD UREA NITROGEN 15 mg/dL (6-20); CREATININE 0.5 mg/dL (0.4-1.0); GFR - MDRD 118 (>89); TOTAL PROTEIN 6.8 g/dL (6.7-8.2)
[2021-07-29 10:06] LABS: BILIRUBIN,DIRECT < 0.1 mg/dL (0.1-0.5)
== END 2021-07-29 08:53 | disposition home or self-care (01) ==
LOC: LAB 08:52
PROVIDERS: ATTEND Physician Assistant Medical
DX: L20.89 Other atopic dermatitis (principal); Z79.899 Other long term (current) drug therapy
CPT/HCPCS: 36415; 80076; 82565; 84520; 85025

== ENCOUNTER 2021-08-30 08:03 | Outpatient (CLI) | payer MEDICARE, OTHER ==
[2021-08-30 08:27] LABS: BASOPHILS % (AUTO) 0.9 %; EOSINOPHILS # (AUTO) 0.1 10^3/uL (0.0-0.7); EOSINOPHILS % (AUTO) 2.2 %; HCT - HEMATOCRIT 44.6 % (37.0-47.0); HGB - HEMOGLOBIN 14.3 g/dL (12.0-16.0); LYMPHOCYTES # (AUTO) 1.9 10^3/uL (1.5-3.5); LYMPHOCYTES % (AUTO) 40.9 %; MEAN CORPUSCULAR HEMOGLOBIN 31.2 pg (27.0-31.0); MEAN CORPUSCULAR HGB CONC 32.1 g/dL (32.0-36.0); MEAN CORPUSCULAR VOLUME 97.4 fL (81.0-99.0); MEAN PLATELET VOLUME 9.5 fL (7.9-10.8); MONOCYTES # (AUTO) 0.4 10^3/uL (0.0-1.0); MONOCYTES % (AUTO) 8.7 %; NEUTROPHILS # (AUTO) 2.2 10^3/uL (1.5-6.6); NEUTROPHILS % (AUTO) 46.9 %; PLT - PLATELET COUNT 170 10^3/uL (130-450); RED BLOOD COUNT 4.58 10^6/uL (4.20-5.40); RED CELL DISTRIBUTION WIDTH 13.5 % (12.0-15.0); WHITE BLOOD COUNT 4.6 x10^3/uL (4.8-10.8)
[2021-08-30 08:50] LABS: ALBUMIN 3.9 g/dL (3.2-5.5); BILIRUBIN,DIRECT 0.1 mg/dL (0.1-0.5); CREATININE 0.6 mg/dL (0.4-1.0); TOTAL PROTEIN 6.6 g/dL (6.7-8.2)
== END 2021-08-30 08:04 | disposition home or self-care (01) ==
LOC: LAB 08:03
PROVIDERS: ATTEND Physician Assistant Medical
DX: L20.89 Other atopic dermatitis (principal); Z79.899 Other long term (current) drug therapy
CPT/HCPCS: 36415; 80076; 82565; 84520; 85025

== ENCOUNTER 2021-12-30 12:20 | Outpatient (CLI) | payer MEDICARE, OTHER ==
[2021-12-30 12:45] LABS: BASOPHILS # (AUTO) 0.1 10^3/uL (0.0-0.1); EOSINOPHILS # (AUTO) 0.1 10^3/uL (0.0-0.7); EOSINOPHILS % (AUTO) 2.1 %; HCT - HEMATOCRIT 39.7 % (37.0-47.0); HGB - HEMOGLOBIN 13.2 g/dL (12.0-16.0); LYMPHOCYTES # (AUTO) 1.4 10^3/uL (1.5-3.5); LYMPHOCYTES % (AUTO) 28.9 %; MEAN CORPUSCULAR HEMOGLOBIN 30.5 pg (27.0-31.0); MEAN CORPUSCULAR HGB CONC 33.2 g/dL (32.0-36.0); MEAN CORPUSCULAR VOLUME 91.7 fL (81.0-99.0); MEAN PLATELET VOLUME 9.6 fL (7.9-10.8); MONOCYTES # (AUTO) 0.3 10^3/uL (0.0-1.0); MONOCYTES % (AUTO) 6.1 %; NEUTROPHILS # (AUTO) 2.9 10^3/uL (1.5-6.6); NEUTROPHILS % (AUTO) 61.7 %; PLT - PLATELET COUNT 182 10^3/uL (130-450); RED BLOOD COUNT 4.33 10^6/uL (4.20-5.40); RED CELL DISTRIBUTION WIDTH 13.8 % (12.0-15.0); WHITE BLOOD COUNT 4.8 x10^3/uL (4.8-10.8)
[2021-12-30 13:06] LABS: THYROID STIMULATING HORMONE 0.62 uIU/mL (0.34-5.60)
[2021-12-30 13:09] LABS: ALBUMIN 4.2 g/dL (3.2-5.5); BILIRUBIN,DIRECT 0.1 mg/dL (0.1-0.5); BILIRUBIN,TOTAL 0.7 mg/dL (0.2-1.0); CREATININE 0.6 mg/dL (0.4-1.0); TOTAL PROTEIN 6.9 g/dL (6.7-8.2)
== END 2021-12-30 12:21 | disposition home or self-care (01) ==
LOC: LAB 12:20
PROVIDERS: ATTEND Physician Assistant Medical
DX: R00.2 Palpitations (principal); L20.89 Other atopic dermatitis; Z79.899 Other long term (current) drug therapy
CPT/HCPCS: 36415; 80076; 82565; 84443; 84520; 85025

== ENCOUNTER 2022-01-29 07:26 | Outpatient (CLI) | payer MEDICARE, OTHER ==
[2022-01-29 07:46] LABS: BASOPHILS # (AUTO) 0.1 10^3/uL (0.0-0.1); BASOPHILS % (AUTO) 1.2 %; EOSINOPHILS # (AUTO) 0.2 10^3/uL (0.0-0.7); HCT - HEMATOCRIT 42.1 % (37.0-47.0); HGB - HEMOGLOBIN 13.8 g/dL (12.0-16.0); LYMPHOCYTES # (AUTO) 1.9 10^3/uL (1.5-3.5); MEAN CORPUSCULAR HEMOGLOBIN 31.7 pg (27.0-31.0); MEAN CORPUSCULAR HGB CONC 32.8 g/dL (32.0-36.0); MEAN CORPUSCULAR VOLUME 96.8 fL (81.0-99.0); MEAN PLATELET VOLUME 10.1 fL (7.9-10.8); MONOCYTES # (AUTO) 0.4 10^3/uL (0.0-1.0); MONOCYTES % (AUTO) 8.4 %; NEUTROPHILS # (AUTO) 2.4 10^3/uL (1.5-6.6); PLT - PLATELET COUNT 185 10^3/uL (130-450); RED BLOOD COUNT 4.35 10^6/uL (4.20-5.40); RED CELL DISTRIBUTION WIDTH 14.4 % (12.0-15.0)
[2022-01-29 07:51] LABS: ALBUMIN 4.2 g/dL (3.2-5.5); BILIRUBIN,DIRECT 0.2 mg/dL (0.1-0.5); BILIRUBIN,TOTAL 0.7 mg/dL (0.2-1.0); CREATININE 0.6 mg/dL (0.4-1.0)
== END 2022-01-29 07:27 | disposition home or self-care (01) ==
LOC: LAB 07:26
PROVIDERS: ATTEND Physician Assistant Medical
DX: L20.89 Other atopic dermatitis (principal); Z79.899 Other long term (current) drug therapy
CPT/HCPCS: 36415; 80076; 82565; 84520; 85025

== ENCOUNTER 2022-02-19 15:17 | Outpatient (CLI) | payer MEDICARE, OTHER ==
--- NOTE | 2022-02-19 17:28 | Ultrasound Report ---
PROCEDURE: Pelvic w/Transvaginal INDICATIONS: LOWER ABD PAIN TECHNIQUE: Real-time scanning was performed of the pelvic organs, with image documentation. Additional endovagi nal scanning was necessary due to incomplete visualization of the adnexal and endometrial structures by transabdominal scanning. COMPARISON: None. FINDINGS: Uterus: Patient is status post hysterectomy. Ovaries: The ovaries are not definitely visualized. No definite pelvic mass is seen. Other: No pathologic free abdominal or pelvic fluid. IMPRESSION: 1. Patient is status post hysterectomy. 2. Ovaries not definitely visualized. 3. No definite abnormalities identified. Reviewed by: Vitor Sousa MD on 02/19/2022 5:26 PM PST Approved by: Vitor Sousa MD on 02/19/2022 5:26 PM PST Station ID: [id number]
== END 2022-02-19 15:18 | disposition home or self-care (01) ==
LOC: DI 15:17
PROVIDERS: ATTEND Physician Assistant
DX: R10.30 Lower abdominal pain, unspecified (principal); Z90.710 Acquired absence of both cervix and uterus

== ENCOUNTER 2022-02-24 08:00 | Outpatient (CLI) | payer MEDICARE, OTHER ==
[2022-02-24 18:27] LABS: BILIRUBIN,URINE NEGATIVE (NEGATIVE); GLUCOSE, URINE (UA) NEGATIVE (NEGATIVE); KETONES,URINE (UA) NEGATIVE (NEGATIVE); LEUKOCYTE ESTERASE, URINE NEGATIVE (NEGATIVE); NITRITE,URINE NEGATIVE (NEGATIVE); OCCULT BLOOD,URINE TRACE-INTA (NEGATIVE); PROTEIN,URINE NEGATIVE (NEGATIVE); UROBILINOGEN,URINE 0.2 (NORMAL) E.U./dL (NORMAL)
[2022-02-24 19:03] LABS: BACTERIA,URINE None Seen /HPF (None Seen); CLARITY,URINE CLEAR (CLEAR); RBC,URINE None Seen /HPF (0-5); SQUAMOUS EPITHELIAL CELL,UR RARE Squamous (<= Few); WBC,URINE 0-3 /HPF (0-5)
== END 2022-02-24 23:59 | disposition home or self-care (01) ==
LOC: LAB.WCP 08:00
PROVIDERS: ATTEND Physician Assistant
DX: R31.21 Asymptomatic microscopic hematuria (principal)
CPT/HCPCS: 81001

== ENCOUNTER 2022-03-01 07:22 | Outpatient (CLI) | payer MEDICARE, OTHER ==
[2022-03-01 07:49] LABS: BASOPHILS # (AUTO) 0.1 10^3/uL (0.0-0.1); EOSINOPHILS # (AUTO) 0.1 10^3/uL (0.0-0.7); HCT - HEMATOCRIT 43.1 % (37.0-47.0); LYMPHOCYTES # (AUTO) 1.8 10^3/uL (1.5-3.5); LYMPHOCYTES % (AUTO) 31.1 %; MEAN CORPUSCULAR HEMOGLOBIN 30.8 pg (27.0-31.0); MEAN CORPUSCULAR HGB CONC 32.5 g/dL (32.0-36.0); MEAN CORPUSCULAR VOLUME 94.9 fL (81.0-99.0); MEAN PLATELET VOLUME 9.9 fL (7.9-10.8); MONOCYTES # (AUTO) 0.5 10^3/uL (0.0-1.0); MONOCYTES % (AUTO) 8.4 %; NEUTROPHILS # (AUTO) 3.4 10^3/uL (1.5-6.6); NEUTROPHILS % (AUTO) 57.2 %; PLT - PLATELET COUNT 170 10^3/uL (130-450); RED BLOOD COUNT 4.54 10^6/uL (4.20-5.40); RED CELL DISTRIBUTION WIDTH 13.4 % (12.0-15.0); WHITE BLOOD COUNT 5.9 x10^3/uL (4.8-10.8)
[2022-03-01 08:01] LABS: BILIRUBIN,DIRECT 0.1 mg/dL (0.1-0.5); BILIRUBIN,TOTAL 1.1 mg/dL (0.2-1.0); CREATININE 0.6 mg/dL (0.4-1.0); TOTAL PROTEIN 6.9 g/dL (6.7-8.2)
== END 2022-03-01 07:23 | disposition home or self-care (01) ==
LOC: LAB 07:22
PROVIDERS: ATTEND Physician Assistant Medical
DX: L20.89 Other atopic dermatitis (principal); Z79.899 Other long term (current) drug therapy
CPT/HCPCS: 36415; 80076; 82565; 84520; 85025

== ENCOUNTER 2022-04-22 12:32 | Outpatient (CLI) | payer MEDICARE, OTHER ==
--- NOTE | 2022-04-22 18:04 | CT Report ---
PROCEDURE: CT CHEST WO contrast INDICATIONS: LUNG NODULE TECHNIQUE: Noncontrast 1mm axial images were acquired from the pulmonary apices to the posterior costophrenic an gles. Axial 5 mm soft tissue kernel reconstructions were performed as well as 8 mm axial MIP and cor onal and sagittal 5 mm reformations. For radiation dose reduction, the following was used: automate d exposure control, adjustment of mA and/or kV according to patient size. COMPARISON: CT chest 03/15/2021 FINDINGS: Image quality: Excellent. Images are denoted as (series #/image #). Lymph nodes: No evidence of thoracic lymphadenopathy however evaluation for mediastinal and hilar keenan nopathy is limited in the absence of intravenous contrast. Vasculature: Aorta and main pulmonary artery diameters are within normal range. Heart: No pericardial effusion. Lung parenchyma and pleura: Pulmonary nodules are present as before, for example: -Right upper lobe lateral: 3 mm groundglass nodule (4/53), unchanged. Multiple scattered calcified granulomata are present. Some of the previously indexed nodules are calc ified compatible with granulomata. No definite new suspicious or enlarging pulmonary nodule. No conso lidation or pleural effusion. Chest wall/musculoskeletal: Multilevel degenerative change of the visualized spine. Similar appearanc e of the upper lumbar vertebral body compression fracture. Visualized upper abdomen: Similar small hypodensity at the upper right lobe of the liver, too small t o characterize, could represent a cyst or hemangioma. IMPRESSION: No significant change in small pulmonary nodules and granulomata. No definite new suspicious or enlar ging pulmonary nodule. Reviewed by: Noe Ash MD on 04/22/2022 6:03 PM PST Approved by: Noe Ash MD on 04/22/2022 6:03 PM PST Station ID: [id number]
== END 2022-04-22 12:33 | disposition home or self-care (01) ==
LOC: DI 12:32
PROVIDERS: ATTEND Physician Assistant
DX: R91.8 Other nonspecific abnormal finding of lung field (principal)

== ENCOUNTER 2022-05-07 07:45 | Outpatient (CLI) | payer MEDICARE, OTHER ==
[2022-05-07 07:58] LABS: BILIRUBIN,URINE NEGATIVE (NEGATIVE); GLUCOSE, URINE (UA) NEGATIVE (NEGATIVE); KETONES,URINE (UA) NEGATIVE (NEGATIVE); LEUKOCYTE ESTERASE, URINE NEGATIVE (NEGATIVE); NITRITE,URINE NEGATIVE (NEGATIVE); OCCULT BLOOD,URINE TRACE-INTA (NEGATIVE); PH,URINE 6.5 PH (5.0-7.5); PROTEIN,URINE NEGATIVE (NEGATIVE); UROBILINOGEN,URINE 0.2 (NORMAL) E.U./dL (NORMAL)
[2022-05-07 08:04] LABS: BACTERIA,URINE None Seen /HPF (None Seen); CLARITY,URINE CLEAR (CLEAR); RBC,URINE None Seen /HPF (0-5); SQUAMOUS EPITHELIAL CELL,UR NONE SEEN (<= Few); WBC,URINE 0-3 /HPF (0-5)
[2022-05-07 08:05] LABS: CALCIUM 9.1 mg/dL (8.5-10.3); CREATININE 0.6 mg/dL (0.4-1.0); POTASSIUM 3.6 mmol/L (3.5-5.0)
== END 2022-05-07 07:46 | disposition home or self-care (01) ==
LOC: LAB 07:45
PROVIDERS: ATTEND Physician Assistant
DX: I10 Essential (primary) hypertension (principal); R31.21 Asymptomatic microscopic hematuria
CPT/HCPCS: 36415; 80048; 81001; 87086

== ENCOUNTER 2022-05-08 12:48 | Outpatient (CLI) | payer MEDICARE, OTHER ==
[2022-05-08 13:05] LABS: BASOPHILS % (AUTO) 0.8 %; EOSINOPHILS # (AUTO) 0.1 10^3/uL (0.0-0.7); EOSINOPHILS % (AUTO) 1.8 %; HCT - HEMATOCRIT 42.7 % (37.0-47.0); HGB - HEMOGLOBIN 13.8 g/dL (12.0-16.0); LYMPHOCYTES # (AUTO) 1.2 10^3/uL (1.5-3.5); LYMPHOCYTES % (AUTO) 24.3 %; MEAN CORPUSCULAR HEMOGLOBIN 30.7 pg (27.0-31.0); MEAN CORPUSCULAR HGB CONC 32.3 g/dL (32.0-36.0); MEAN CORPUSCULAR VOLUME 94.9 fL (81.0-99.0); MEAN PLATELET VOLUME 9.5 fL (7.9-10.8); MONOCYTES # (AUTO) 0.3 10^3/uL (0.0-1.0); MONOCYTES % (AUTO) 5.4 %; NEUTROPHILS # (AUTO) 3.4 10^3/uL (1.5-6.6); NEUTROPHILS % (AUTO) 67.5 %; PLT - PLATELET COUNT 178 10^3/uL (130-450); RED CELL DISTRIBUTION WIDTH 13.5 % (12.0-15.0)
[2022-05-08 13:22] LABS: BILIRUBIN,DIRECT 0.1 mg/dL (0.1-0.5); CREATININE 0.6 mg/dL (0.4-1.0); TOTAL PROTEIN 6.9 g/dL (6.7-8.2)
== END 2022-05-08 12:49 | disposition home or self-care (01) ==
LOC: LAB 12:48
PROVIDERS: ATTEND Physician Assistant Medical
DX: L20.89 Other atopic dermatitis (principal); Z79.899 Other long term (current) drug therapy
CPT/HCPCS: 36415; 80076; 81599; 82565; 84520; 85025; 86480

== ENCOUNTER 2022-07-14 07:28 | Outpatient (CLI) | payer MEDICARE, OTHER ==
[2022-07-14 07:44] LABS: BASOPHILS # (AUTO) 0.1 10^3/uL (0.0-0.1); BASOPHILS % (AUTO) 1.3 %; EOSINOPHILS # (AUTO) 0.2 10^3/uL (0.0-0.7); EOSINOPHILS % (AUTO) 3.6 %; HCT - HEMATOCRIT 45.1 % (37.0-47.0); HGB - HEMOGLOBIN 14.6 g/dL (12.0-16.0); LYMPHOCYTES % (AUTO) 42.1 %; MEAN CORPUSCULAR HEMOGLOBIN 31.1 pg (27.0-31.0); MEAN CORPUSCULAR HGB CONC 32.4 g/dL (32.0-36.0); MEAN PLATELET VOLUME 9.6 fL (7.9-10.8); MONOCYTES # (AUTO) 0.5 10^3/uL (0.0-1.0); MONOCYTES % (AUTO) 10.1 %; NEUTROPHILS % (AUTO) 42.7 %; PLT - PLATELET COUNT 194 10^3/uL (130-450); RED CELL DISTRIBUTION WIDTH 13.3 % (12.0-15.0); WHITE BLOOD COUNT 4.7 x10^3/uL (4.8-10.8)
[2022-07-14 08:01] LABS: ALBUMIN 4.1 g/dL (3.2-5.5); BILIRUBIN,DIRECT 0.1 mg/dL (0.1-0.5); CREATININE 0.6 mg/dL (0.4-1.0); TOTAL PROTEIN 7.1 g/dL (6.7-8.2)
== END 2022-07-14 07:29 | disposition home or self-care (01) ==
LOC: LAB 07:28
PROVIDERS: ATTEND Physician Assistant Medical
DX: L20.89 Other atopic dermatitis (principal); Z79.899 Other long term (current) drug therapy
CPT/HCPCS: 36415; 80076; 82565; 84520; 85025

== ENCOUNTER 2022-09-15 07:18 | Outpatient (CLI) | payer MEDICARE, OTHER ==
[2022-09-15 07:30] LABS: BASOPHILS # (AUTO) 0.1 10^3/uL (0.0-0.1); BASOPHILS % (AUTO) 1.3 %; EOSINOPHILS # (AUTO) 0.2 10^3/uL (0.0-0.7); EOSINOPHILS % (AUTO) 4.2 %; HCT - HEMATOCRIT 42.7 % (37.0-47.0); HGB - HEMOGLOBIN 14.2 g/dL (12.0-16.0); LYMPHOCYTES # (AUTO) 1.8 10^3/uL (1.5-3.5); LYMPHOCYTES % (AUTO) 37.7 %; MEAN CORPUSCULAR HEMOGLOBIN 31.3 pg (27.0-31.0); MEAN CORPUSCULAR HGB CONC 33.3 g/dL (32.0-36.0); MEAN CORPUSCULAR VOLUME 94.3 fL (81.0-99.0); MEAN PLATELET VOLUME 9.9 fL (7.9-10.8); MONOCYTES # (AUTO) 0.4 10^3/uL (0.0-1.0); MONOCYTES % (AUTO) 8.6 %; NEUTROPHILS # (AUTO) 2.3 10^3/uL (1.5-6.6); PLT - PLATELET COUNT 184 10^3/uL (130-450); RED BLOOD COUNT 4.53 10^6/uL (4.20-5.40); WHITE BLOOD COUNT 4.8 x10^3/uL (4.8-10.8)
[2022-09-15 07:51] LABS: ALBUMIN 3.9 g/dL (3.2-5.5); BILIRUBIN,DIRECT 0.1 mg/dL (0.1-0.5); BILIRUBIN,TOTAL 0.7 mg/dL (0.2-1.0); CREATININE 0.6 mg/dL (0.4-1.0)
== END 2022-09-15 07:19 | disposition home or self-care (01) ==
LOC: LAB 07:18
PROVIDERS: ATTEND Physician Assistant Medical
DX: L20.89 Other atopic dermatitis (principal); Z79.899 Other long term (current) drug therapy
CPT/HCPCS: 36415; 80076; 82565; 84520; 85025

== ENCOUNTER 2022-11-13 07:40 | Outpatient (CLI) | payer MEDICARE, OTHER ==
[2022-11-13 07:56] LABS: BASOPHILS # (AUTO) 0.1 10^3/uL (0.0-0.1); BASOPHILS % (AUTO) 1.3 %; EOSINOPHILS # (AUTO) 0.3 10^3/uL (0.0-0.7); EOSINOPHILS % (AUTO) 5.5 %; HCT - HEMATOCRIT 43.7 % (37.0-47.0); HGB - HEMOGLOBIN 14.3 g/dL (12.0-16.0); MEAN CORPUSCULAR HEMOGLOBIN 30.8 pg (27.0-31.0); MEAN CORPUSCULAR HGB CONC 32.7 g/dL (32.0-36.0); MEAN PLATELET VOLUME 9.6 fL (7.9-10.8); MONOCYTES # (AUTO) 0.4 10^3/uL (0.0-1.0); MONOCYTES % (AUTO) 9.7 %; NEUTROPHILS # (AUTO) 1.7 10^3/uL (1.5-6.6); NEUTROPHILS % (AUTO) 38.5 %; PLT - PLATELET COUNT 185 10^3/uL (130-450); RED BLOOD COUNT 4.65 10^6/uL (4.20-5.40); RED CELL DISTRIBUTION WIDTH 13.4 % (12.0-15.0); WHITE BLOOD COUNT 4.5 x10^3/uL (4.8-10.8)
[2022-11-13 08:04] LABS: ALBUMIN 4.1 g/dL (3.2-5.5); ALKALINE PHOSPHATASE 81 IU/L (42-121); ALT ALANINE AMINOTRANSFERASE 15 IU/L (10-60); AST ASPARTATE AMINOTRANSFERASE 20 IU/L (10-42); BILIRUBIN,DIRECT < 0.10 mg/dL (0.03-0.18); BILIRUBIN,TOTAL 0.8 mg/dL (0.2-1.0); BUN - BLOOD UREA NITROGEN 16 mg/dL (6-20); CREATININE 0.6 mg/dL (0.6-1.3); GFR - MDRD 96 (>89); TOTAL PROTEIN 7.1 g/dL (6.4-8.9)
[2022-11-13 08:20] LABS: THYROID STIMULATING HORMONE 1.27 uIU/mL (0.34-5.60)
== END 2022-11-13 07:41 | disposition home or self-care (01) ==
LOC: LAB 07:40
PROVIDERS: ATTEND Physician Assistant Medical
DX: R53.83 Other fatigue (principal); L20.89 Other atopic dermatitis; Z79.899 Other long term (current) drug therapy
CPT/HCPCS: 36415; 80076; 82565; 84443; 84520; 85025

== ENCOUNTER 2022-11-25 08:32 | Emergency (ER) | payer MEDICARE, OTHER ==
--- NOTE | 2022-11-25 08:46 | ED Physician Documentation ---
PD HPI CHEST PAIN - Stated complaint Stated Complaint: POUNDING HEART - Chief complaint Chief Complaint: Cardiac - History obtained from History obtained from: Patient - History of Present Illness Timing - onset: How many hours ago (04/14) Timing - onset during: Rest (just getting up this morning, feeling of forceful heart beating, but not notably fast. lasted about 20-30 minutes. Improved enroute here. Associated with lightheaded, and some headache feeling. No nausea nor dyspnea.) Timing - details: Intermittant Quality: Pressure, Other (feeling of heart forceful without pain per se.) Location: Substernal Radiation: Other (none) Improved by: Other (just stops on own after minutes.) Worsened by: No: Exertion (she has not noticed this when active/gardening/etc. Mainly noted when at rest, intermittent for few minutes up to half hour occasionally the past 2-3 months. Occurring more often about 2-3 times daily this past week. Called Cardiolgist office and given appt for January.), Eating, Movement Associated symptoms: No: Shortness of air, Nausea Recently seen: Not recently seen Review of Systems Constitutional: denies: Fever, Chills Cardiac: reports: Palpitations. denies: Pedal edema, Calf pain Respiratory: denies: Dyspnea, Cough, Wheezing GI: denies: Abdominal Pain, Vomiting, Diarrhea, Bloody / black stool Musculoskeletal: denies: Extremity swelling Neurologic: denies: Syncope PD PAST MEDICAL HISTORY - Past Medical History Cardiovascular: High cholesterol, Coronary artery disease, Angina, Atrial fibrillation, Murmur, Arrhythmia (? SVT vs atrial fib, with ablation x [address] Valera. 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 Cardiovascular: Other HEENT: Cataracts - Present Medications Home Medications: Ambulatory Orders Medication Instructions Recorded Confirmed Halobetasol Propionate 1 applic TP DAILY PRN 04/27/20 02/16/21 Methotrexate [Methotrexate Sodium] 25 mg PO DAILY 04/27/20 02/16/21 Prednisone [Ryan] 5 mg PO DAILY 02/16/21 02/16/21 Omeprazole Magnesium 20 mg PO DAILY 04/14/21 04/14/21 Sucralfate [Carafate] 1 gm PO ACHS #28 tablet 04/14/21 Magnesium Oxide [Mag Ox] 400 mg PO DAILY #15 tablet 11/25/22 Potassium Citrate [Potassium] 99 mg PO DAILY #15 cap 11/25/22 - Allergies Allergies/Adverse Reactions: Allergies Allergy/AdvReac Type Severity Reaction Status Date / Time levofloxacin [From Levaquin] Allergy Mild Rash Verified 12/24/21 06:58 niacin Allergy Mild Rash Verified 12/24/21 06:58 amoxicillin [Amoxicillin] Allergy Rash Verified 12/24/21 06:58 cefdinir Allergy Unknown Verified 12/24/21 06:58 colestipol [From Colestid] Allergy Unknown Verified 12/24/21 06:58 dupilumab [From Dupixent] Allergy Rash Verified 12/24/21 06:58 ezetimibe [From Zetia] Allergy Rash Verified 12/24/21 06:58 furosemide [From Lasix] Allergy Rash Verified 12/24/21 06:58 metoprolol Allergy Unknown Verified 12/24/21 06:58 Trtadlk-JMD-EgV Reductase Allergy Rash Verified 12/24/21 06:58 Inhibitor [Mmdreri-Xtg-Uel Reductase Inhibitor] Sulfa (Sulfonamide Allergy Rash Verified 12/24/21 06:58 Antibiotics) Tetracyclines Allergy Rash Verified 12/24/21 06:58 diltiazem AdvReac Mild Rash Verified 12/24/21 06:58 - Social History Does the pt smoke?: No Smoking Status: Never smoker Does the pt drink ETOH?: No Does the pt have substance abuse?: No - Immunizations Immunizations are current?: Yes - POLST Patient has POLST: No PD ED PE NORMAL - Vitals Vital signs reviewed: Yes - General General: Alert and oriented X 3, No acute distress, Well developed/nourished - Neck Neck: Supple, no meningeal sign, No adenopathy, Thyroid normal - Cardiac Cardiac: RRR, No murmur - Respiratory Respiratory: Clear bilaterally - Abdomen Abdomen: Soft, Non tender - Derm Derm: Normal color, Warm and dry - Extremities Extremities: No tenderness to palpate, No edema, No calf tenderness / cord - Neuro Neuro: Alert and oriented X 3, No motor deficit, Normal speech Results - Vitals Vitals: Vital Signs - 24 hr 11/25/22 11/25/22 11/25/22 08:37 09:19 09:30 Temperature 36.8 C Heart Rate 76 67 71 Respiratory 14 18 15 Rate Blood Pressure 143/68 H 146/74 H 151/69 H O2 Saturation 94 97 98 11/25/22 11/25/22 11/25/22 10:00 10:42 11:00 Temperature Heart Rate 62 69 74 Respiratory 10 L 12 14 Rate Blood Pressure 153/72 H 151/76 H 160/74 H O2 Saturation 98 99 100 Oxygen O2 Source Room air - EKG (time done) 08:49 EKG releavant findings:: EKG personally interpreted by author of this note. Relevant findings are: Rhythm: NSR [place]: Normal Intervals: Normal [place] QRS: Normal Ischemia: Normal ST segments. No: ST elevation c/w ischemia, ST depression - Labs Labs: Laboratory Tests 11/25/22 11/25/22 11/25/22 09:18 09:18 09:18 WBC 4.0 L RBC 4.73 Hgb 14.0 Hct 43.7 MCV 92.4 MCH 29.6 MCHC 32.0 RDW 13.1 Plt Count 182 MPV 9.5 Neut # (Auto) 1.9 Lymph # (Auto) 1.5 [place] # (Auto) 0.4 Eos # (Auto) 0.2 Baso # (Auto) 0.0 Absolute Nucleated RBC 0.00 Nucleated RBC % 0.0 Sodium 139 Potassium 3.7 Chloride 105 Carbon Dioxide 28 Anion Gap 6.0 BUN 11 Creatinine 0.6 Estimated GFR (MDRD) 96 Glucose 105 H Calcium 9.5 Magnesium 1.9 Total Bilirubin 0.8 AST 16 ALT 13 Alkaline Phosphatase 74 B-Natriuretic Peptide 30 Total Protein 6.8 Albumin 4.0 Globulin 2.8 Albumin/Globulin Ratio 1.4 Lipase 16 TSH 1.03 PD Medical Decision Making - ED course Complexity details: reviewed results (she did not have any ectopy nor irregular rhythms while here in ER. ), considered differential, d/w patient, d/w regional engagement consultant ([place], Cardiology, who will have his office set pt up with [facility] for further eval and f/u in office. ) Reviewed Lab Results: Potassium and magnesium on the low end of normal. EKG shows a normal sinus rhythm. ED course: Your symptoms sound potentially an episodic abnormal rhythm such as A-fib or SVT. It was abrupt onset and then off and has been recurring in small spurts over the the past several weeks or so. Otherwise she feels normal in between. Departure - Departure Disposition: 01 Home, Self Care Clinical Impression: Chest discomfort, Irregular heart beats Condition: Stable Record reviewed to determine appropriate education?: Yes Instructions: ED Palpitations Follow-Up: Lillian Parra PA-C [Primary Care Provider] - Albino Valera MD [Provider Admit Priv/Credential] - Prescriptions: Magnesium Oxide [Mag Ox] 400 mg PO DAILY #15 tablet Potassium Citrate [Potassium] 99 mg PO DAILY #15 cap Comments: Your EKG was normal here. The rhythm review while you are here showed some movement artifact but no extra or abnormal beats. A talk with Dr. Valera who says his office will send you out a wearable heart monitor that you can wear for a few days to a week. They will call you to provide instructions in such. Meanwhile stay well-hydrated. Continue usual medications. Your electrolytes were in the normal range but potassium and magnesium are at the lower end of normal and may allow for more irregularity of the heart rhythm. Add a potassium and magnesium supplements for the next 10 days or so. I see on your allergy list that you are allergic to metoprolol and diltiazem. Dr. Valera had suggested we could add a medication to help with the irregularity but these are the 2 categories that would be suggested. So for now use the electrolyte supplements and see how you are doing with symptoms. Contact Dr. Hernandes's office if increasing frequency or severity. Otherwise have the wearable heart monitor as directed by Dr. Valera's office and follow-up with them. They presumably will give you a follow-up appointment sooner than your current scheduled one. Forms: PCP List Discharge Date/Time: 11/25/22 11:23
[2022-11-25 09:25] LABS: EOSINOPHILS # (AUTO) 0.2 10^3/uL (0.0-0.7); EOSINOPHILS % (AUTO) 5.3 %; HCT - HEMATOCRIT 43.7 % (37.0-47.0); LYMPHOCYTES # (AUTO) 1.5 10^3/uL (1.5-3.5); LYMPHOCYTES % (AUTO) 38.2 %; MEAN CORPUSCULAR HEMOGLOBIN 29.6 pg (27.0-31.0); MEAN CORPUSCULAR VOLUME 92.4 fL (81.0-99.0); MEAN PLATELET VOLUME 9.5 fL (7.9-10.8); MONOCYTES # (AUTO) 0.4 10^3/uL (0.0-1.0); MONOCYTES % (AUTO) 8.8 %; NEUTROPHILS # (AUTO) 1.9 10^3/uL (1.5-6.6); NEUTROPHILS % (AUTO) 46.4 %; PLT - PLATELET COUNT 182 10^3/uL (130-450); RED BLOOD COUNT 4.73 10^6/uL (4.20-5.40); RED CELL DISTRIBUTION WIDTH 13.1 % (12.0-15.0)
[2022-11-25 09:43] LABS: ALBUMIN/GLOBULIN RATIO 1.4 (1.0-2.2); BILIRUBIN,TOTAL 0.8 mg/dL (0.2-1.0); CALCIUM 9.5 mg/dL (8.5-10.3); CREATININE 0.6 mg/dL (0.6-1.3); MAGNESIUM 1.9 mg/dL (1.7-2.3); POTASSIUM 3.7 mmol/L (3.5-4.5); TOTAL PROTEIN 6.8 g/dL (6.4-8.9)
[2022-11-25 11:04] VITALS: BP 160/74; O2SAT 100
== END 2022-11-25 11:23 | disposition home or self-care (01) ==
LOC: ED 08:32
DX: R07.89 Other chest pain (principal); R00.2 Palpitations; I48.91 Unspecified atrial fibrillation; Z86.79 Personal history of other diseases of the circulatory system
CPT/HCPCS: 36415; 80053; 83690; 83735; 83880; 84443; 85025; 93005; 99284

== ENCOUNTER 2022-12-30 07:19 | Outpatient (CLI) | payer MEDICARE, OTHER ==
[2022-12-30 07:53] LABS: CALCIUM 9.2 mg/dL (8.5-10.3); CREATININE 0.5 mg/dL (0.6-1.3); MAGNESIUM 1.7 mg/dL (1.7-2.3); POTASSIUM 3.9 mmol/L (3.5-4.5)
== END 2022-12-30 07:20 | disposition home or self-care (01) ==
LOC: LAB 07:19
PROVIDERS: ATTEND Physician Assistant
DX: I10 Essential (primary) hypertension (principal); E87.6 Hypokalemia; E83.42 Hypomagnesemia
CPT/HCPCS: 36415; 80048; 83735

== ENCOUNTER 2023-01-17 07:16 | Outpatient (CLI) | payer MEDICARE, OTHER ==
[2023-01-17 07:39] LABS: BASOPHILS # (AUTO) 0.1 10^3/uL (0.0-0.1); BASOPHILS % (AUTO) 1.2 %; EOSINOPHILS # (AUTO) 0.8 10^3/uL (0.0-0.7); EOSINOPHILS % (AUTO) 16.2 %; HCT - HEMATOCRIT 42.1 % (37.0-47.0); HGB - HEMOGLOBIN 13.6 g/dL (12.0-16.0); LYMPHOCYTES # (AUTO) 1.7 10^3/uL (1.5-3.5); LYMPHOCYTES % (AUTO) 35.8 %; MEAN CORPUSCULAR HEMOGLOBIN 30.6 pg (27.0-31.0); MEAN CORPUSCULAR HGB CONC 32.3 g/dL (32.0-36.0); MEAN CORPUSCULAR VOLUME 94.6 fL (81.0-99.0); MEAN PLATELET VOLUME 9.7 fL (7.9-10.8); MONOCYTES # (AUTO) 0.4 10^3/uL (0.0-1.0); MONOCYTES % (AUTO) 7.3 %; NEUTROPHILS # (AUTO) 1.9 10^3/uL (1.5-6.6); NEUTROPHILS % (AUTO) 39.5 %; PLT - PLATELET COUNT 178 10^3/uL (130-450); RED BLOOD COUNT 4.45 10^6/uL (4.20-5.40); RED CELL DISTRIBUTION WIDTH 13.6 % (12.0-15.0); WHITE BLOOD COUNT 4.8 x10^3/uL (4.8-10.8)
[2023-01-17 07:51] LABS: ALBUMIN 3.9 g/dL (3.2-5.5); CALCIUM 9.4 mg/dL (8.5-10.3); CREATININE 0.7 mg/dL (0.6-1.3); PHOSPHORUS 3.4 mg/dL (2.5-5.0)
== END 2023-01-17 07:17 | disposition home or self-care (01) ==
LOC: LAB 07:16
PROVIDERS: ATTEND Physician Assistant Medical
DX: L20.89 Other atopic dermatitis (principal); Z79.899 Other long term (current) drug therapy
CPT/HCPCS: 36415; 80069; 82565; 84520; 85025

== ENCOUNTER 2023-01-25 05:02 | Emergency (ER) | payer MEDICARE, OTHER ==
[2023-01-25 05:19] VITALS: BP 149/79; O2SAT 99
--- NOTE | 2023-01-25 05:31 | ED Physician Documentation ---
PD HPI OPHTHO - Stated complaint Stated Complaint: PUT WRONG EYEDROP ON LT EYE - Chief complaint Chief Complaint: Heent - History obtained from History obtained from: Patient - Additional information Additional information: Patient is an 82-year-old female presenting for evaluation of accidentally putting in the wrong medication into her left eye this morning. Patient states she usually uses artificial tears but accidentally reached for clobetasol which she uses for eczema on the scalp. She immediately felt a burning sensation and Flushed her eye with water. She states that this happened approximately 1 hour ago and her symptoms have improved but she was already on the way here so she wanted to get checked. She states that her vision seems to be at her baseline. She denies feeling any further irritation. Review of Systems Eyes: reports: Irritation. denies: Loss of vision, Photophobia PD PAST MEDICAL HISTORY - Past Medical History Cardiovascular: High cholesterol, Coronary artery disease, Angina, Atrial fibrillation, Murmur, Arrhythmia (? SVT vs atrial fib, with ablation x [address] Valera. 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 Cardiovascular: Other HEENT: Cataracts - Present Medications Home Medications: Ambulatory Orders Medication Instructions Recorded Confirmed Halobetasol Propionate 1 applic TP DAILY PRN 04/27/20 02/16/21 Methotrexate [Methotrexate Sodium] 25 mg PO DAILY 04/27/20 02/16/21 Prednisone [Ryan] 5 mg PO DAILY 02/16/21 02/16/21 Omeprazole Magnesium 20 mg PO DAILY 04/14/21 04/14/21 Sucralfate [Carafate] 1 gm PO ACHS #28 tablet 04/14/21 Magnesium Oxide [Mag Ox] 400 mg PO DAILY #15 tablet 11/25/22 Potassium Citrate [Potassium] 99 mg PO DAILY #15 cap 11/25/22 - Allergies Allergies/Adverse Reactions: Allergies Allergy/AdvReac Type Severity Reaction Status Date / Time levofloxacin [From Levaquin] Allergy Mild Rash Verified 12/24/21 06:58 niacin Allergy Mild Rash Verified 12/24/21 06:58 amoxicillin [Amoxicillin] Allergy Rash Verified 01/25/23 05:16 cefdinir Allergy Unknown Verified 01/25/23 05:16 colestipol [From Colestid] Allergy Unknown Verified 01/25/23 05:16 dupilumab [From Dupixent] Allergy Rash Verified 01/25/23 05:16 ezetimibe [From Zetia] Allergy Rash Verified 01/25/23 05:16 furosemide [From Lasix] Allergy Rash Verified 01/25/23 05:16 metoprolol Allergy Unknown Verified 01/25/23 05:16 Atldxag-EAR-WnV Reductase Allergy Rash Verified 01/25/23 05:16 Inhibitor [Xdpfktl-Ynq-Zyf Reductase Inhibitor] Sulfa (Sulfonamide Allergy Rash Verified 01/25/23 05:16 Antibiotics) Tetracyclines Allergy Rash Verified 01/25/23 05:16 diltiazem AdvReac Mild Rash Verified 01/25/23 05:16 - Social History Does the pt smoke?: No Smoking Status: Never smoker Does the pt drink ETOH?: No Does the pt have substance abuse?: No - Immunizations Immunizations are current?: Yes - POLST Patient has POLST: No PD ED PE NORMAL - General General: Alert and oriented X 3, No acute distress, Well developed/nourished - HEENT HEENT: Atraumatic, PERRL, EOMI - Respiratory Respiratory: No respiratory distress - Neuro Neuro: Normal speech PD ED PE EXPANDED - Eyes Eyes: Visual acuity - see nn, PERRL, EOMI, Normal eyelids, Injected conj/sclera (Mild conjunctival injection to left eye), Normal corneas, Anterior chambers clear, Other (Left eye IOP 21). No: Corneal FB, Corneal abrasion, Corneal ulcer, Fluorescein uptake, Hyphema Results - Vitals Vitals: Vital Signs - 24 hr 01/25/23 05:11 Temperature 36.3 C L Heart Rate 69 Respiratory 18 Rate Blood Pressure 149/79 H O2 Saturation 99 Oxygen O2 Source Room air PD Medical Decision Making - ED course ED course: Patient presenting for evaluation of accidentally using the wrong medication in the left eye. She has already irrigated out the eye. Her visual acuity is intact. She states that she has no irritation. No signs of corneal injury. pH is ~7 Based on testing strips. Normal IOP. Patient reports feeling no symptoms currently. Discussed importance of ensuring right medications before administering as well as concerning symptoms to return for. Departure - Departure Disposition: 01 Home, Self Care Clinical Impression: Chemical conjunctivitis of left eye Condition: Stable Instructions: ED Chemical Conjunctivitis Comments: Please take extra caution before using any drops in your eyes. Return to the emergency department with any worsening symptoms such as pain or changes to your vision. Forms: PCP List Discharge Date/Time: 01/25/23 05:36
== END 2023-01-25 05:36 | disposition home or self-care (01) ==
LOC: ED 05:02
DX: T49.0X1A Poisoning by local antifungal, anti-infective and anti-inflammatory drugs, accidental (unintentional), initial encounter (principal); Y92.009 Unspecified place in unspecified non-institutional (private) residence as the place of occurrence of the external cause; H10.212 Acute toxic conjunctivitis, left eye
CPT/HCPCS: 99282; 99283

== ENCOUNTER 2023-03-23 07:57 | Outpatient (CLI) | payer MEDICARE, OTHER ==
[2023-03-23 08:24] LABS: BASOPHILS # (AUTO) 0.1 10^3/uL (0.0-0.1); BASOPHILS % (AUTO) 1.2 %; EOSINOPHILS # (AUTO) 0.4 10^3/uL (0.0-0.7); EOSINOPHILS % (AUTO) 8.3 %; HGB - HEMOGLOBIN 13.1 g/dL (12.0-16.0); LYMPHOCYTES # (AUTO) 1.9 10^3/uL (1.5-3.5); LYMPHOCYTES % (AUTO) 36.9 %; MEAN CORPUSCULAR HEMOGLOBIN 30.8 pg (27.0-31.0); MEAN CORPUSCULAR HGB CONC 32.8 g/dL (32.0-36.0); MEAN CORPUSCULAR VOLUME 93.9 fL (81.0-99.0); MEAN PLATELET VOLUME 9.6 fL (7.9-10.8); MONOCYTES # (AUTO) 0.5 10^3/uL (0.0-1.0); MONOCYTES % (AUTO) 10.1 %; NEUTROPHILS # (AUTO) 2.2 10^3/uL (1.5-6.6); NEUTROPHILS % (AUTO) 43.3 %; PLT - PLATELET COUNT 175 10^3/uL (130-450); RED BLOOD COUNT 4.26 10^6/uL (4.20-5.40); RED CELL DISTRIBUTION WIDTH 13.8 % (12.0-15.0)
[2023-03-23 08:40] LABS: ALBUMIN 3.9 g/dL (3.2-5.5); BILIRUBIN,DIRECT 0.1 mg/dL (0.03-0.18); BILIRUBIN,TOTAL 0.8 mg/dL (0.2-1.0); CREATININE 0.6 mg/dL (0.6-1.3); TOTAL PROTEIN 6.5 g/dL (6.4-8.9)
== END 2023-03-23 07:58 | disposition home or self-care (01) ==
LOC: LAB 07:57
PROVIDERS: ATTEND Physician Assistant Medical
DX: L20.89 Other atopic dermatitis (principal); Z79.899 Other long term (current) drug therapy
CPT/HCPCS: 36415; 80076; 82565; 84520; 85025

== ENCOUNTER 2023-05-25 07:20 | Outpatient (CLI) | payer MEDICARE, OTHER ==
[2023-05-25 07:34] LABS: BASOPHILS # (AUTO) 0.1 10^3/uL (0.0-0.1); EOSINOPHILS # (AUTO) 0.3 10^3/uL (0.0-0.7); EOSINOPHILS % (AUTO) 5.3 %; HCT - HEMATOCRIT 42.8 % (37.0-47.0); HGB - HEMOGLOBIN 13.5 g/dL (12.0-16.0); LYMPHOCYTES # (AUTO) 1.8 10^3/uL (1.5-3.5); MEAN CORPUSCULAR HEMOGLOBIN 30.5 pg (27.0-31.0); MEAN CORPUSCULAR HGB CONC 31.5 g/dL (32.0-36.0); MEAN CORPUSCULAR VOLUME 96.6 fL (81.0-99.0); MEAN PLATELET VOLUME 9.8 fL (7.9-10.8); MONOCYTES # (AUTO) 0.5 10^3/uL (0.0-1.0); MONOCYTES % (AUTO) 9.5 %; NEUTROPHILS # (AUTO) 2.3 10^3/uL (1.5-6.6); NEUTROPHILS % (AUTO) 47.8 %; PLT - PLATELET COUNT 164 10^3/uL (130-450); RED BLOOD COUNT 4.43 10^6/uL (4.20-5.40); RED CELL DISTRIBUTION WIDTH 13.6 % (12.0-15.0); WHITE BLOOD COUNT 4.9 x10^3/uL (4.8-10.8)
[2023-05-25 07:47] LABS: ALBUMIN 4.1 g/dL (3.2-5.5); BILIRUBIN,DIRECT 0.12 mg/dL (0.03-0.18); BILIRUBIN,TOTAL 0.6 mg/dL (0.2-1.0); CREATININE 0.7 mg/dL (0.6-1.3); TOTAL PROTEIN 6.6 g/dL (6.4-8.9)
== END 2023-05-25 07:21 | disposition home or self-care (01) ==
LOC: LAB 07:20
PROVIDERS: ATTEND Physician Assistant Medical
DX: L20.89 Other atopic dermatitis (principal); Z79.899 Other long term (current) drug therapy
CPT/HCPCS: 36415; 80076; 82565; 84520; 85025

== ENCOUNTER 2023-07-27 07:29 | Outpatient (CLI) | payer MEDICARE, OTHER ==
[2023-07-27 07:52] LABS: BASOPHILS # (AUTO) 0.1 10^3/uL (0.0-0.1); BASOPHILS % (AUTO) 1.2 %; EOSINOPHILS # (AUTO) 0.3 10^3/uL (0.0-0.7); EOSINOPHILS % (AUTO) 6.2 %; HCT - HEMATOCRIT 43.6 % (37.0-47.0); LYMPHOCYTES # (AUTO) 1.9 10^3/uL (1.5-3.5); LYMPHOCYTES % (AUTO) 39.5 %; MEAN CORPUSCULAR HEMOGLOBIN 31.1 pg (27.0-31.0); MEAN CORPUSCULAR HGB CONC 32.1 g/dL (32.0-36.0); MEAN CORPUSCULAR VOLUME 96.9 fL (81.0-99.0); MONOCYTES # (AUTO) 0.5 10^3/uL (0.0-1.0); MONOCYTES % (AUTO) 10.5 %; NEUTROPHILS # (AUTO) 2.1 10^3/uL (1.5-6.6); NEUTROPHILS % (AUTO) 42.4 %; PLT - PLATELET COUNT 177 10^3/uL (130-450); RED CELL DISTRIBUTION WIDTH 13.2 % (12.0-15.0); WHITE BLOOD COUNT 4.8 x10^3/uL (4.8-10.8)
[2023-07-27 08:02] LABS: ALKALINE PHOSPHATASE 76 IU/L (42-121); ALT ALANINE AMINOTRANSFERASE 13 IU/L (10-60); AST ASPARTATE AMINOTRANSFERASE 17 IU/L (10-42); BILIRUBIN,DIRECT < 0.10 mg/dL (0.03-0.18); BILIRUBIN,TOTAL 0.7 mg/dL (0.2-1.0); BUN - BLOOD UREA NITROGEN 17 mg/dL (6-20); CREATININE 0.6 mg/dL (0.6-1.3); GFR - MDRD 95 (>89); TOTAL PROTEIN 6.8 g/dL (6.4-8.9)
== END 2023-07-27 07:30 | disposition home or self-care (01) ==
LOC: LAB 07:29
PROVIDERS: ATTEND Physician Assistant Medical
DX: L20.89 Other atopic dermatitis (principal); Z79.899 Other long term (current) drug therapy
CPT/HCPCS: 36415; 80076; 82565; 84520; 85025

== ENCOUNTER 2023-09-28 06:56 | Outpatient (CLI) | payer MEDICARE, OTHER ==
[2023-09-28 07:27] LABS: ALBUMIN 4.1 g/dL (3.2-5.5)
[2023-09-28 07:33] LABS: BILIRUBIN,DIRECT 0.13 mg/dL (0.03-0.18); BILIRUBIN,TOTAL 0.8 mg/dL (0.2-1.0); CREATININE 0.6 mg/dL (0.6-1.3)
[2023-09-28 07:43] LABS: BASOPHILS # (AUTO) 0.1 10^3/uL (0.0-0.1); BASOPHILS % (AUTO) 1.4 %; EOSINOPHILS # (AUTO) 0.3 10^3/uL (0.0-0.7); EOSINOPHILS % (AUTO) 5.4 %; HGB - HEMOGLOBIN 14.1 g/dL (12.0-16.0); LYMPHOCYTES # (AUTO) 2.1 10^3/uL (1.5-3.5); LYMPHOCYTES % (AUTO) 42.7 %; MEAN CORPUSCULAR HEMOGLOBIN 31.3 pg (27.0-31.0); MEAN CORPUSCULAR HGB CONC 32.8 g/dL (32.0-36.0); MEAN CORPUSCULAR VOLUME 95.3 fL (81.0-99.0); MEAN PLATELET VOLUME 10.1 fL (7.9-10.8); MONOCYTES # (AUTO) 0.5 10^3/uL (0.0-1.0); MONOCYTES % (AUTO) 9.6 %; NEUTROPHILS % (AUTO) 40.5 %; PLT - PLATELET COUNT 180 10^3/uL (130-450); RED BLOOD COUNT 4.51 10^6/uL (4.20-5.40); RED CELL DISTRIBUTION WIDTH 13.4 % (12.0-15.0)
== END 2023-09-28 06:57 | disposition home or self-care (01) ==
LOC: LAB 06:56
PROVIDERS: ATTEND Physician Assistant Medical
DX: L20.89 Other atopic dermatitis (principal); Z79.899 Other long term (current) drug therapy
CPT/HCPCS: 36415; 80076; 82565; 84520; 85025

== ENCOUNTER 2023-10-03 06:52 | Outpatient (CLI) | payer MEDICARE, OTHER ==
[2023-10-03 07:44] LABS: BASOPHILS # (AUTO) 0.1 10^3/uL (0.0-0.1); BASOPHILS % (AUTO) 1.1 %; EOSINOPHILS # (AUTO) 0.2 10^3/uL (0.0-0.7); EOSINOPHILS % (AUTO) 3.1 %; HCT - HEMATOCRIT 42.9 % (37.0-47.0); HGB - HEMOGLOBIN 14.1 g/dL (12.0-16.0); LYMPHOCYTES # (AUTO) 2.3 10^3/uL (1.5-3.5); LYMPHOCYTES % (AUTO) 42.5 %; MEAN CORPUSCULAR HEMOGLOBIN 31.1 pg (27.0-31.0); MEAN CORPUSCULAR HGB CONC 32.9 g/dL (32.0-36.0); MEAN CORPUSCULAR VOLUME 94.5 fL (81.0-99.0); MEAN PLATELET VOLUME 9.8 fL (7.9-10.8); MONOCYTES # (AUTO) 0.5 10^3/uL (0.0-1.0); MONOCYTES % (AUTO) 9.1 %; NEUTROPHILS # (AUTO) 2.4 10^3/uL (1.5-6.6); NEUTROPHILS % (AUTO) 44.2 %; PLT - PLATELET COUNT 175 10^3/uL (130-450); RED BLOOD COUNT 4.54 10^6/uL (4.20-5.40); RED CELL DISTRIBUTION WIDTH 13.7 % (12.0-15.0); WHITE BLOOD COUNT 5.5 x10^3/uL (4.8-10.8)
[2023-10-03 07:55] LABS: ALBUMIN 4.1 g/dL (3.2-5.5); ALBUMIN/GLOBULIN RATIO 1.6 (1.0-2.2); ALKALINE PHOSPHATASE 72 IU/L (42-121); ALT ALANINE AMINOTRANSFERASE 13 IU/L (10-60); AST ASPARTATE AMINOTRANSFERASE 16 IU/L (10-42); BUN - BLOOD UREA NITROGEN 17 mg/dL (6-20); CALCIUM 9.5 mg/dL (8.5-10.3); CARBON DIOXIDE - CO2 28 mmol/L (21-32); CHLORIDE 103 mmol/L (101-111); CHOL/HDL RATIO 3.3 (<4.4); CHOLESTEROL 261 mg/dL; CREATININE 0.6 mg/dL (0.6-1.3); GFR - MDRD 95 (>89); GLUCOSE 95 mg/dL (74-104); HDL CHOLESTEROL 79 mg/dL; LDL CHOLESTEROL,CALCULATED 149 mg/dL; LDL/HDL RATIO 1.9 (<4.4); POTASSIUM 3.7 mmol/L (3.5-4.5); SODIUM 137 mmol/L (135-145); TOTAL PROTEIN 6.7 g/dL (6.4-8.9); TRIGLYCERIDES 165 mg/dL (48-352); VLDL CHOLESTEROL 33 mg/dL
[2023-10-03 08:07] LABS: THYROID STIMULATING HORMONE 2.02 uIU/mL (0.34-5.60)
== END 2023-10-03 06:53 | disposition home or self-care (01) ==
LOC: LAB 06:52
PROVIDERS: ATTEND Physician Assistant
DX: I10 Essential (primary) hypertension (principal); E78.5 Hyperlipidemia, unspecified
CPT/HCPCS: 36415; 80053; 80061; 83721; 84443; 85025

== ENCOUNTER 2023-10-03 06:58 | Outpatient (CLI) | payer MEDICARE, OTHER | END 2023-10-03 06:59 | disposition home or self-care (01) | LOC: LAB 06:58 | PROVIDERS: ATTEND Physician Assistant Medical | DX: L20.89 Other atopic dermatitis (principal); Z79.899 Other long term (current) drug therapy; I10 Essential (primary) hypertension; E78.5 Hyperlipidemia, unspecified | CPT/HCPCS: 36415; 80053; 80061; 81599; 82248; 83721; 84443; 85025 ==

== ENCOUNTER 2023-11-25 08:26 | Outpatient (CLI) | payer MEDICARE, OTHER ==
[2023-11-25 08:42] LABS: BASOPHILS # (AUTO) 0.1 10^3/uL (0.0-0.1); EOSINOPHILS # (AUTO) 0.3 10^3/uL (0.0-0.7); EOSINOPHILS % (AUTO) 5.7 %; HCT - HEMATOCRIT 42.4 % (37.0-47.0); HGB - HEMOGLOBIN 13.3 g/dL (12.0-16.0); LYMPHOCYTES # (AUTO) 1.6 10^3/uL (1.5-3.5); LYMPHOCYTES % (AUTO) 31.5 %; MEAN CORPUSCULAR HEMOGLOBIN 30.1 pg (27.0-31.0); MEAN CORPUSCULAR HGB CONC 31.4 g/dL (32.0-36.0); MEAN CORPUSCULAR VOLUME 95.9 fL (81.0-99.0); MEAN PLATELET VOLUME 9.3 fL (7.9-10.8); MONOCYTES # (AUTO) 0.6 10^3/uL (0.0-1.0); MONOCYTES % (AUTO) 11.5 %; NEUTROPHILS # (AUTO) 2.5 10^3/uL (1.5-6.6); NEUTROPHILS % (AUTO) 50.1 %; PLT - PLATELET COUNT 182 10^3/uL (130-450); RED BLOOD COUNT 4.42 10^6/uL (4.20-5.40); RED CELL DISTRIBUTION WIDTH 13.9 % (12.0-15.0)
[2023-11-25 09:18] LABS: ALBUMIN 3.9 g/dL (3.2-5.5); ALKALINE PHOSPHATASE 80 IU/L (42-121); ALT ALANINE AMINOTRANSFERASE 12 IU/L (10-60); AST ASPARTATE AMINOTRANSFERASE 17 IU/L (10-42); BILIRUBIN,DIRECT < 0.10 mg/dL (0.03-0.18); BILIRUBIN,TOTAL 0.6 mg/dL (0.2-1.0); BUN - BLOOD UREA NITROGEN 17 mg/dL (6-20); CREATININE 0.7 mg/dL (0.6-1.3); GFR - MDRD 80 (>89); TOTAL PROTEIN 6.5 g/dL (6.4-8.9)
== END 2023-11-25 08:27 | disposition home or self-care (01) ==
LOC: LAB 08:26
PROVIDERS: ATTEND Physician Assistant Medical
DX: L20.89 Other atopic dermatitis (principal); Z79.899 Other long term (current) drug therapy
CPT/HCPCS: 36415; 80076; 82565; 84520; 85025